=== PATIENT | male | born 1955 | race Caucasian/White ===

== ENCOUNTER 2016-08-16 16:28 | Inpatient (IN) ==
--- NOTE | 2016-08-16 16:58 | PROVIDER DOCUMENTATION ---
Addendum entered and electronically signed by Kulwinder Raines Scribe 08/17/16 11 :21: Physician Attestation - Physician Attestation I, the provider, attest to the following statement:: Abiel De Paz Physician documentation Attestation:: This documentation recorded by the scribe accurately reflects the service I personally performed and the decisions made by me. Addendum entered and electronically signed by Kulwinder Raines Scribe 08/17/16 11 :20: Attestation - Scribe Verification/Attestation Scribe:: Kulwinder Raines Acting as Scribe for:: Abiel De Paz Scribe documention review:: This chart was documented by a scribe and accurately reflects the service the provider performed and the decisions made by the provider. Addendum entered and electronically signed by Kulwinder Raines Scribe 08/17/16 11 :18: Departure - Departure Time of Disposition Order: 10:51 DIAGNOSIS: Abscess, Post op infection Disposition: [place] [id number] Certified Medical Emergency: Emergent Condition: Stable - Critical Care Note Total Time (mins): 45 Critical Care Statement: This patient required my direct personal management to treat or rule out processes, the absence of which, could potentiallly result in sudden, clinically significant life or limb threatening deterioration. Addendum entered and electronically signed by Kulwinder Raines Scribe 08/17/16 10 :53: Progress - CONSULTS/PCP/HOSPITALIST Notification #1 *Consult/PCP/Hospitalist*: ( ER physician at [place], [place]) Time Discussed: 10:51 Reason/Comments: accept patient , post op fem-pop infection Consult Disposition: other (Transfer To [facility] ER) Addendum entered and electronically signed by Kulwinder Raines Scribe 08/17/16 10 :46: Progress - PLAN OF CARE/RESULTS Progress/Plan/Lab Results: 1030- at bedside, consult on patient. Patient reported not wanting to go back to [facility]. reviewed CT scan of Abd/Pelv. patient has post op infection at [facility]. he had it performed at [facility]. recommended that patient return to surgeon that performed surgery due to being post-op. Patient updated on plan of care. patient initially wanted to stay here or go to [place]. spoke with patient in detail regarding issues with his post-infection. Patient is willing to be transferred to [facility]. [facility] will be contacted. Addendum entered and electronically signed by Leonora Schafer PA 08/16/16 22: 43: Additional Progress - ADDITIONAL REASSESSMENT Time Reassessed: 22:40 (Patient's BP dropped to 43/32 on the monitor. Upon reassessment, patient is sleeping but easily aroused from sleep. He is alert and only complains of left groin pain. He has a palpable radial pulse. Dr. Arita discussed with Dr. Sofia. Will start neosynephrine drip and upgrate to ICU admit.) Original Note: HPI-General Adult - General Stated Complaint: Post OP Complications Time Seen by Provider: 08/16/16 16:30 Source: patient Allergies/Adverse Reactions: Patient Allergies Allergy/AdvReac Type Severity Reaction Status Date / Time No Known Allergies Allergy Verified 12/04/15 22:02 Home Medications: Home Medication List Medication Instructions Recorded Confirmed Last Taken Type No Home Medications 08/16/16 08/16/16 Unknown History - History of Present Illness -Gen Adult Nature of Presenting Problems: 61 y/o M smoker with history of emphysema, alcohol abuse, MT x 2 (last MT 3 months ago), ?PVD (s/p left groin stent placement at [facility] in [place] 15 days ago) presents with complaint of worsening left groin pain and drainage (green) from surgical site x 2 weeks. He has no follow up scheduled with the [facility] or [facility] because he was not satisfied with his care. He does not have any plans for alternative follow up. He has no PCP. Denies any fever, N/V, dysuria, constipation, diarrhea. He curently lives at the [facility] in [place]. His transportation is walking. No contact with family. Location of Pain/Injury: reports: other (left groin) Pain Radiation: reports: other (generalized abdomen) Quality of Pain: reports: aching Severity: reports: severe Onset/Duration: reports: other (2 weeks ago) Timing: reports: still present Context/Activities at Onset: reports: other (recent surgery) Modifying Factors: improves with: nothing Associated Symptoms: denies: chest pain, constipation, cough, fever/chills, nausea, vomiting Review of Systems - Adult - REVIEW OF SYSTEMS - ADULT Constitutional: reports: no symptoms reported. denies: chills, fever Eyes: reports: no symptoms reported. denies: decreased vision, blurred vision Ears, Nose, Mouth & Throat: reports: no symptoms reported. denies: ear pain, hearing loss Cardiovascular: reports: no symptoms reported. denies: chest pain Respiratory: reports: no symptoms reported. denies: cough, shortness of breath , wheezing Gastrointestinal: reports: see HPI Genitourinary: reports: see HPI Musculoskeletal: reports: no symptoms reported. denies: muscle aches, muscle weakness Integumentary: reports: see HPI Neurological: reports: no symptoms reported. denies: numbness, paresthesia Psychiatric: reports: no symptoms reported Endocrine: reports: no symptoms reported Hematologic/Lymphatic: reports: no symptoms reported Allergic/Immunologic: reports: no symptoms reported All Other Systems: Reviewed and Negative Past History - Adult - PAST MEDICAL HISTORY-ADULT Review of Records: reports: Nursing Assessment Review, Medications Reviewed Major Childhood Illnesses: reports: denies history Cardiovascular: reports: CAD, HTN, hyperlipidemia, PVD (BLE stents) Respiratory: reports: asthma, COPD Gastrointestinal: reports: GERD Obstetrical/Gynecological: reports: denies history Genitourinary: reports: denies history Musculoskeletal: reports: denies history Neurological: reports: denies history Psychiatric: reports: depression Endocrine/Immune: reports: denies history Other Conditions: reports: denies history - PRIOR SURGERIES/PROCEDURES Surgical/Procedure History: reports: other (arterial stents in BLE) - IMMUNIZATION STATUS Childhood Immunizations: UTD Flu Vaccine: See Nurse Assessment - FAMILY HISTORY Family History: reviewed, not pertinent Physical Exam-General - PHYSICAL EXAM-ADULT Initial Vital Signs Reviewed: Yes - CONSTITUTIONAL General Appearance: alert, no apparent distress - EYES Eyes: PERRL/EOMI, pink conjunctivae - HEAD, EARS, NOSE, MOUTH & THROAT HENMT: normocephalic/atraumatic, moist mucous membranes - NECK Neck: non-tender, full range of motion, supple - RESPIRATORY Respiratory: chest non-tender, lungs clear, normal breath sounds, no pleuratic chest pain, no respiratory distress, no accessory muscle use - CARDIOVASCULAR Cardiovascular: regular rate, rhythm, no edema, other - GASTROINTESTINAL (ABDOMEN) Abdominal Exam: normal bowel sounds, guarding, tenderness (generalized) - GENITOURINARY Male Genitalia: other (bilateral groin incisions. left groin incision is tender , draining purulent material, and foul smelling.) - MUSCULOSKELETAL Back Exam: normal inspection, no CVA tenderness Extremity: tenderness, other (necrotic tissue at tips of toes). negative: erythema Peripheral Pulses: dorsalis-pedis (R): 2+, dorsalis-pedis (L): 1+ - SKIN Integumentary: normal color, normal turgor, warm/dry - NEUROLOGIC Neurologic: grossly normal, no motor/sensory deficits - PSYCHIATRIC Psych/Mental Status: normal mood/affect, normal thought content, normal thought process, oriented x 3 Progress - PLAN OF CARE/RESULTS Progress/Plan/Lab Results: Laboratory Tests 08/16/16 08/16/16 08/16/16 16:47 16:47 16:50 WBC 7.64 RBC 3.43 L Hgb 10.5 L Hct 32.0 L MCV 93.3 MCH 30.6 MCHC 32.8 L RDW Std Deviation 13.8 Plt Count 391 MPV 10.0 Immature Gran % (Auto) 0.0 Neut % (Auto) 72.4 Lymph % (Auto) 17.7 L [place] % (Auto) 7.1 Eos % (Auto) 2.5 Baso % (Auto) 0.3 Immature Gran # (Auto) 0.00 Neut # (Auto) 5.54 Lymph # (Auto) 1.35 [place] # (Auto) 0.54 Eos # (Auto) 0.19 Baso # (Auto) 0.02 Sodium 141 Potassium 3.6 Chloride 101 Carbon Dioxide 23 L Anion Gap 17 BUN 8 Creatinine 1.0 Estimated GFR/1.73 m2 > 60 BUN/Creatinine Ratio 8 Glucose 98 Calculated Osmolality 280 Calcium 8.5 L Total Bilirubin 0.16 L AST 16 ALT 21 Alkaline Phosphatase 99 Total Protein 7.0 Albumin 3.1 L Globulin 3.9 Albumin/Globulin Ratio 0.8 Lipase 19 Plasma Lactate 2.5 H Orders Category Date Time Status CHEST-2 VIEWS [RAD] Stat Exams 08/16/16 17:[address] ABD/PELVIS W/ IV CONT ONLY [CT] Stat Exams 08/16/16 17:22 Ordered BLOOD CULTURE [BLDCUL] Stat Lab 08/16/16 16:47 Results CBC WITH ELECTRONIC DIFF [HEME] Stat Lab 08/16/16 16:47 Completed COMPREHENSIVE METABOLIC PANEL [CHEM] Stat Lab 08/16/16 16:47 Completed LACTATE, PLASMA [CHEM] Stat Lab 08/16/16 16:50 Completed LIPASE [CHEM] Stat Lab 08/16/16 16:47 Completed URINALYSIS W/POSS RFLX CULT [URINALYSIS] Stat Lab 08/16/16 17:12 Uncollected 0.9% Sodium Chloride Inj [Ns] 1,000 ml Med 08/16/16 17:24 Discontinued IV 999 mls/hr Morphine Med 08/16/16 17:30 Discontinued 4 mg IV NOW ONE Ondansetron [Zofran] Med 08/16/16 17:30 Discontinued 4 mg IV NOW ONE Piperacil/Tazobact 3.375 gm/Ns [Zosyn 3.375 gm/Ns] 50 Med 08/16/16 17:27 Discontinued ml IV NOW Vancomycin 1 gm/Ns 250 ml Med 08/16/16 17:27 Discontinued IV NOW Arterial Bilateral Legs [CV] Stat Ther 08/16/16 17:27 Ordered Venous U/S Bilateral Legs [CV] Stat Ther 08/16/16 17:27 Ordered Vital Signs Temp Pulse Resp BP Pulse Ox 08/16/16 16:33 88 18 104/75 95 08/16/16 16:29 99.0 F 92 H 18 104/75 95 No Known Allergies Allergy (Verified 12/04/15 22:02) Ibuprofen [Motrin] 800 mg PO Q8H PRN PRN #20 tablet 12/04/15 Omeprazole [Prilosec] 20 mg PO DAILY@0700 #20 capsule 12/04/15 Laboratory 08/16/16 08/16/16 08/16/16 16:50 16:47 16:47 WBC 7.64 RBC 3.43 L Hgb 10.5 L Hct 32.0 L MCV 93.3 MCH 30.6 MCHC 32.8 L RDW Std Deviation 13.8 Plt Count 391 MPV 10.0 Immature Gran % (Auto) 0.0 Neut % (Auto) 72.4 Lymph % (Auto) 17.7 L [place] % (Auto) 7.1 Eos % (Auto) 2.5 Baso % (Auto) 0.3 Immature Gran # (Auto) 0.00 Neut # (Auto) 5.54 Lymph # (Auto) 1.35 [place] # (Auto) 0.54 Eos # (Auto) 0.19 Baso # (Auto) 0.02 Sodium 141 Potassium 3.6 Chloride 101 Carbon Dioxide 23 L Anion Gap 17 BUN 8 Creatinine 1.0 Estimated GFR/1.73 m2 > 60 BUN/Creatinine Ratio 8 Glucose 98 Calculated Osmolality 280 Calcium 8.5 L Total Bilirubin 0.16 L AST 16 ALT 21 Alkaline Phosphatase 99 Total Protein 7.0 Albumin 3.1 L Globulin 3.9 Albumin/Globulin Ratio 0.8 Lipase 19 Plasma Lactate 2.5 H - REASSESSMENT Reassessment #1 Time Reassessed: 20:00 (Discussed with patient that he has a post-op infection. I strongly recommended we consult [facility] for transfer because it is best that the original surgeon care for the infection, however patient refuses transport to [facility] and wants to be cared for here. Dr. Arita also discussed this with patient a second time and patient still refuses. Will admit to hospitalist with surgery to consult.) Status: unchanged - CT/MRI 1 CT Study: Abdomen, Pelvis CT Results: 2.5cm x 1.5cm fluid collection c/w abscess at incision site - ULTRASOUND (By Radiology) 1 US Study: Lower Ext US Results: illiac stents patent. no DVT - CONSULTS/PCP/HOSPITALIST Notification #1 *Consult/PCP/Hospitalist*: Dr. Quispe Consult Disposition: other (will consult inpatient) #2 Consult: Dr. Sandhu Consult Disposition: Admit Departure - Departure Time of Disposition Order: 21:05 DIAGNOSIS: Abscess, Post op infection Disposition: ADMITTED INPATIENT 09 Certified Medical Emergency: Emergent Condition: Stable Referrals: None,PCP [Primary Care Provider] - Attestation - Physician/ AYAAN Attestation Patient care was provided by Advanced Practice Provider:: Yes Advanced Practice Provider:: Leonora Schafer Advanced Practice Provider documentation review:: The Mid-level provider documentation, treatment plan and medical decision making was reviewed by the physician who agrees with all treatment and medical decision making by the [facility].
[2016-08-16] MEDS ORDERED: NS 1,000 ML IV ONE ×2 (17:24→20:07)
[2016-08-16] MEDS ORDERED: VANCOMYCIN 1 GM/NS 250 ML IV ONE (17:27)
[2016-08-16] MEDS ORDERED: ZOSYN 3.375 GM/NS 50 ML IV ONE (17:27)
[2016-08-16] MEDS ORDERED: ZOFRAN IV ONE (17:30)
[2016-08-16] MEDS ORDERED: MORPHINE IV ONE (17:30)
[2016-08-16 17:42] LABS: MANUAL DIFF NEEDED? NO
[2016-08-16 17:46] LABS: BASO% 0.3 % (0.0-0.8); EOS# 0.19 X1000 (0.0-0.7); EOS% 2.5 % (0.0-10.0); HEMOGLOBIN 10.5 g/dL (14.0-18.0); LYMPH# 1.35 X1000 (1.2-3.4); LYMPH% 17.7 % (20.5-51.1); MCH 30.6 PG (27-31); MCHC 32.8 g/dL (33-37); MCV 93.3 FL (81-99); MONO# 0.54 X1000 (0.11-0.59); MONO% 7.1 % (1.7-9.3); NEUT% 72.4 % (42.2-75.2); PLT 391 X1000 (130-400); RBC 3.43 XMIL (4.7-6.1)
[2016-08-16 18:25] LABS: AGAP 17; ALBUMIN 3.1 g/dL (3.5-5.0); ALKALINE PHOSPHATASE 99 U/L (32-122); BUN 8 mg/dL (8-22); CALCIUM 8.5 mg/dL (8.8-10.2); CHLORIDE 101 mmol/L (98-107); COSMO 280; GOT 16 U/L (10-34); GPT 21 U/L (10-44); LIPASE 19 U/L (13-60); POTASSIUM 3.6 mmol/L (3.5-5.1); SODIUM 141 mmol/L (136-145); TCO2 23 mmol/L (25-35); TOTAL BILIRUBIN 0.16 mg/dL (0.20-1.00)
[2016-08-16] MEDS ORDERED: NS 500 ML IV ONE (20:43)
[2016-08-16] MEDS ORDERED: NEO-SYNEPHRINE 50 MG in NS 250 ML IV SCH (22:45)
[2016-08-16] MEDS ORDERED: VANCOMYCIN IV PER PHARMACY MISC SCH (23:30)
[2016-08-17] MEDS ORDERED: ZOFRAN IV PRN (01:10)
[2016-08-17] MEDS ORDERED: MORPHINE IV PRN (01:10)
--- NOTE | 2016-08-17 01:25 | HISTORY AND PHYSICAL ---
CHIEF COMPLAINT: Drainage and pain on left wound. HISTORY OF PRESENT ILLNESS: This is a 61-year-old male with history of significant PVD, COPD, dyslipidemia, who came in from home with a several day history of irritation in his left groin associated with drainage from an incision he has associated with I believe stent placement to his iliac arteries. The patient has had issues with this off and on for several days. He had recent stent placement or angioplasty about 2 weeks ago at the [facility] in [place]. He claims [facility]. He has not followed up with them and he is very upset about trying to follow up with them. He would not even sign a release to get records and refused to go back to the [facility] where he had once came. The patient is agreeable to be admitted here for IV antibiotics and at least a surgical evaluation although he may not need any further treatment at this point. Apparently, he has social history of homelessness and poor social resources. Patient admitted for infected incision above a vascular stent. PAST MEDICAL HISTORY: 1. CAD. 2. Hypertension. 3. Dyslipidemia. 4. Peripheral vascular disease. 5. COPD. PAST SURGICAL HISTORY: He has had arterial for PVD. SOCIAL HISTORY: He smokes up to 2 packs a day. He has done that for over 20 years. Occasional alcohol use. MEDICATIONS: Denies. REVIEW OF SYSTEMS: Negative. ALLERGIES: No known drug allergies. PHYSICAL EXAMINATION: VITAL SIGNS: Blood pressure was 126/65, heart rate of 86, respiratory rate of 18, temperature 98.9 degrees, 98% on room air. GENERAL: A well-developed male in no acute distress. HEAD: Normocephalic, atraumatic. EYES: Pupils equal, round, reactive to light. Extraocular movements were intact. EAR/NOSE/THROAT: He had moist mucous membranes. NECK: Supple. CARDIOVASCULAR: Regular rate and rhythm. No murmurs, gallops, or rubs. PULMONARY: Bilateral breath sounds. Clear to auscultation. GASTROINTESTINAL: Soft, nontender, nondistended. Bowel sounds are positive. EXTREMITIES: No clubbing or cyanosis. 2+ dorsalis pedal pulses, very potent even though his legs are cool. Over his left groin area kind of in between in the left lower quadrant, he has an incision which is pink and has good granulation tissue but is weeping some purulent white material especially at the base. Has dehisced a little bit at the base but other than that no vita severe cellulitis. LYMPHATICS: No peripheral edema. NEUROLOGICAL: Exam was nonfocal. LABORATORY DATA: No white count. Rest of his workup was negative. ASSESSMENT: Basically, this is a 61-year-old male with history of a recent stent replacement sounds like coming in for cellulitis and infected incision. 1. Incision wound infection possibly associated with abscess. CT scan does show a small abscess at the left side of the femoral-femoral bypass but the bypass is patent. I did not appreciate a bruit so we will continue empiric antibiotics. He is on vancomycin and Zosyn. We will consult Surgery for further evaluation and monitor closely. 2. Coronary artery disease, peripheral vascular disease. We will continue to monitor very closely. 3. Hypertension, appears to be stable. 4. Tobacco abuse. 5. Chronic obstructive pulmonary disease. We will continue to monitor. DISPOSITION: Pending resolution of his other issues.
[2016-08-17] MEDS: NS 1,000 ML IV SCH ×2 (02:39→08:41)
[2016-08-17] MEDS: ZOSYN 3.375 GM/NS 50 ML IV SCH ×2 (02:40→08:41)
[2016-08-17] MEDS ORDERED: VANCOMYCIN 650 MG in NS 150 ML IV ONE (03:00)
[2016-08-17 04:34] LABS: URINE CULTURE NEEDED? NO; URINE MICRO REVIEW NEEDED? NO; URINE SOURCE CLEAN CATCH
[2016-08-17 04:38] LABS: BILIRUBIN URINE NEGATIVE (NEGATIVE); BLOOD URINE NEGATIVE (NEGATIVE); COLOR YELLOW; GLUCOSE URINE NEGATIVE (NEGATIVE); LEUKOCYTES URINE NEGATIVE (NEGATIVE); NITRITE URINE NEGATIVE (NEGATIVE); PH URINE 5.5; PROTEIN URINE NEGATIVE (NEGATIVE); TURBIDITY URINE CLEAR (CLEAR); UROBILINOGEN URINE NORMAL (NORMAL)
[2016-08-17 04:39] LABS: UR EPITHELIAL CELLS <10 /HPF (<10); URINE BACTERIA NEGATIVE /HPF; URINE RBC <10 /HPF (<10); URINE WBC <10 /HPF (<10)
[2016-08-17 06:41] LABS: HEMATOCRIT 28.1 % (42.0-52.0); HEMOGLOBIN 8.8 g/dL (14.0-18.0); MCH 30.4 PG (27-31); MCHC 31.3 g/dL (33-37); MCV 97.2 FL (81-99); MPV 9.9 FL (7.4-10.4); RBC 2.89 XMIL (4.7-6.1)
[2016-08-17 07:23] LABS: AGAP 10; BUN 9 mg/dL (8-22); CALCIUM 7.8 mg/dL (8.8-10.2); CHLORIDE 107 mmol/L (98-107); COSMO 276; POTASSIUM 4.3 mmol/L (3.5-5.1); SODIUM 139 mmol/L (136-145); TCO2 22 mmol/L (25-35)
--- NOTE | 2016-08-17 07:42 | Diag Imaging Result Document ---
PROCEDURE NAME: CHEST-2 VIEWS - 08/16/2016 CHEST X-RAY, 2 VIEWS: COMPARISON: 06/05/2015. FINDINGS: The lungs are normally expanded and clear. Heart size and mediastinal contours are normal. No pneumothorax or pleural effusion. IMPRESSION: Negative exam.
--- NOTE | 2016-08-17 08:04 | Diag Imaging Result Document ---
PROCEDURE NAME: CT ABD/PELVIS W/ IV CONT ONLY - 08/16/2016 CT OF THE ABDOMEN WITH INTRAVENOUS CONTRAST: FINDINGS: There are atherosclerotic calcifications in the aorta and its branches including the renal, particularly the proximal right renal artery. The celiac artery and the proximal superior mesenteric as well as some calcifications more distally in the superior mesenteric artery. There is patency of the inferior mesenteric artery. The right common iliac artery is occluded. There is no evidence of abdominal aortic aneurysm. There are granulomata in the spleen. The liver is unremarkable. The gallbladder is contracted. The adrenal glands are within normal limits. The pancreas is within normal limits. There is some cortical scarring in the mid portion of the right kidney. There is a cyst in the inferior pole of the left kidney. No significant adenopathy is present. There is no evidence of bowel obstruction. CT OF THE PELVIS WITH INTRAVENOUS CONTRAST: FINDINGS: There is no evidence of appendicitis. The urinary bladder is slightly distended. There is no evidence of free fluid. There is a femoral-femoral graft. There is a fluid collection subadjacent to the left side of the graft which presumably is the source of the purulent drainage which is described in the history. There is some enhancement in the periphery of this collection. It extends from the graft to the skin and measures approximately 3.1 x 1.2 cm in axial dimension. There are nonspecific-appearing inguinal nodes bilaterally. There is severe degenerative disk disease at the L5-S1 level. There is a healing rib fracture in the posterior right 11th rib. IMPRESSION: Extensive vascular calcification and atherosclerotic disease with occlusion of the right common iliac artery. Recent femoral-femoral graft the left side which appears to be associated with a fluid collection possibly representing an abscess. There is patency of the graft a nonetheless. No other acute abnormalities are demonstrated in the abdomen and pelvis.
--- NOTE | 2016-08-17 11:10 | PROGRESS NOTE ---
DATE: 08/17/2016 INDICATION FOR EVALUATION: The patient presented to the emergency room last night with a 7-day history of foul drainage from his left groin. He is 2 weeks status post vascular surgery in [place] at [facility]. The patient is not exactly sure what he had done. He said he was told he had no blood flow to his left leg, and they performed an operation to restore blood flow to his left leg. He complains of some left lower abdominal pain. He denies fever. PAST MEDICAL AND SURGICAL HISTORY: Noted for peripheral vascular disease, COPD, coronary artery disease, hypertension, and no prior surgeries to his lower extremity, except for the 1 mentioned above. HABITS: He smokes 2 packs a day for many years. SUBJECTIVE: Last night my partner, Dr. Quispe, was apparently called and discussed the case with the ER physician. He then subsequently was admitted to the hospitalist, and I was called today for surgical consultation. OBJECTIVE: General: On exam, the patient is hemodynamically stable. He is alert and oriented x4. He is in no acute distress. He is nontoxic appearing. Groins: However, in his left groin there is a small open wound through the incision with purulent drainage noted. He is fairly tender in this area. There is some induration around it. He also has a matching groin incision on the right side, but no obvious infection over there. His feet are warm. He appears to have good perfusion or adequate perfusion to his feet. LABS AND X-RAYS: His white blood cell count was normal. He had a CT scan of his abdomen and pelvis, which shows a femoral-femoral bypass graft with a fluid collection adjacent to the graft and extending up to the skin with surrounding inflammatory changes. ASSESSMENT AND PLAN: So, in summary, this patient has had what looks to be a femoral-femoral bypass graft 2 weeks ago at [facility] and now has an infection of the skin and soft tissue and perhaps the graft, as the fluid collection goes all the way down to the graft. After discussing with the patient the serious nature of this, he is in agreement to be transferred back to his vascular surgeon in [place] for further care of this problem. I have discussed this with the ER physician and awaiting a call back from the hospitalist, who has him on his service.
--- NOTE | 2016-08-17 11:52 | DISCHARGE SUMMARY ---
ADMISSION DATE: 08/16/2016 DISCHARGE DATE: 08/17/2016 PLAN: Transfer to [facility] in [place]. ACCEPTING PHYSICIAN: Dr. Arteaag. ADMISSION DIAGNOSES: 1. Left groin small abscess at the left side of the femoral-femoral bypass with wound infection. 2. Coronary artery disease. 3. Peripheral vascular disease. 4. Hypertension. 5. Tobacco abuse. 6. Chronic obstructive pulmonary disease with no exacerbation. DISCHARGE DIAGNOSES: 1. Left groin abscess with infection status post femoral-femoral bypass with up patent bypass, who was on empiric antibiotics, vancomycin and Zosyn. Will be transferred to Dr. Arteaga at [facility] in [place] for further treatment. 2. Coronary artery disease, stable. 3. Peripheral vascular disease, stable. 4. Hypertension, stable. 5. Tobacco abuse cessation discussed. 6. Chronic obstructive pulmonary disease, stable. 7. Anemia with normal mean corpuscular volume. 8. Gram-positive cocci bacteremia. Full report pending. This is being covered by vancomycin. PROCEDURES AND FINDINGS: None. CONSULTATIONS: Dr. Lyons to evaluate left femoral bypass area. HOSPITAL COURSE: Mr. Sushil Brewer is a 61-year-old male with a history of significant peripheral vascular disease, COPD, dyslipidemia, who came from home with a several-day history of irritation of the left groin associated with drainage from an incision where he has had a femoral-femoral bypass recently. Apparently he has been having this issue on and off for the last several days. He recently had a coronary artery stent placed about 2 weeks ago at the [facility] in [facility]. He apparently has not followed up with them and has been upset about trying to follow up with them. Apparently according to the admission H and P, he would not sign a release to get records and refused to go back to the [facility] where he had come from. He was agreeable to be admitted here for IV antibiotics and surgical evaluation. He apparently has a social history of homelessness with poor social resources. He was evaluated by Dr. Lyons this morning, and will now be sent to [facility] in [place] with the accepting physician as Dr. Arteaga for further evaluation of the fem-fem bypass incisional site abscess. No significant complications. He has had a wound culture of the left groin that was obtained less than 24 hours ago that currently says no growth. Blood cultures were obtained where apparently 2 sets of blood culture show gram-positive cocci. DISCHARGE LAB DATA: White blood cells 7000, hemoglobin 8.8, hematocrit 28.1, platelet count 311. Sodium 139, potassium 4.3, BUN 9, creatinine is 1.0, calcium 7.8. Urinalysis negative. DISCHARGE IMAGING: Abdominal/pelvic CT impression: Extensive vascular calcification and atherosclerotic disease with occlusion of the right common iliac artery. Recent femoral-femoral graft of the left side, which appears to be associated with a fluid collection possibly representing an abscess. There is patency of the graft nonetheless. No other acute abnormalities are demonstrated in the abdomen and pelvis. Chest x-ray was a negative exam. DISCHARGE PHYSICAL EXAMINATION: Vital Signs: Temperature 98.6 degrees, heart rate 65, respiratory rate 20, blood pressure 120/78, O2 saturation 100% on 2 L nasal cannula. DISCHARGE MEDICATIONS: No home medications. He will need to continue on broad- spectrum antibiotics, specifically gram-positive coverage with vancomycin and then gram- negative coverage with Zosyn. He needs gram-positive coverage for the gram-positive cocci that is found in both sets of blood cultures. DISCHARGE TIME: 35 minutes. DISCHARGE ACTIVITY: Activity as tolerated. DISPOSITION: [facility] in [place] with Dr. Arteaga. DISCHARGE INSTRUCTIONS: Continue broad spectrum IV antibiotics for bacteremia and left femoral abscess near the fem-fem bypass site. Also, cessation of tobacco abuse ( cessation of cigarettes). Dictated by YAIMA Fernández for Sukhdeep Dorado MD MTDD
[2016-08-17 13:48] VITALS: BP 133/77
[2016-08-18] MEDS ORDERED: VANCOMYCIN 1,350 MG in NS 250 ML IV SCH (03:00)
== END 2016-08-17 14:04 | disposition home or self-care (01) | DRG 863 ==
LOC: EDBD → ED 16:28 → EDIPHOLD 23:57
PROVIDERS: ATTEND Internal Medicine
DX: T81.4XXA Infection following a procedure, initial encounter (principal); R78.81 Bacteremia; I10 Essential (primary) hypertension; L02.214 Cutaneous abscess of groin; I70.203 Unspecified atherosclerosis of native arteries of extremities, bilateral legs; J44.9 Chronic obstructive pulmonary disease, unspecified; E78.5 Hyperlipidemia, unspecified; Z95.820 Peripheral vascular angioplasty status with implants and grafts; Z59.0 Homelessness; I25.10 Atherosclerotic heart disease of native coronary artery without angina pectoris; F17.210 Nicotine dependence, cigarettes, uncomplicated; D64.9 Anemia, unspecified
CPT/HCPCS: 36415; 71020; 74177; 80048; 80053; 81001; 82948; 83605; 83690; 85025; 85027; 87040; 87070; 87077; 87186; 93005; 93923; 93970; 96361; 96365; 96366; 96367; 96368; 96375; 96376; J2270; J2370; J2405; J2543; J3370; J7030; J7040; J7050; Q9967

== ENCOUNTER 2019-09-23 12:37 | Observation (INO) ==
[2019-09-23] MEDS ORDERED: DILAUDID IV ONE (13:10)
[2019-09-23] MEDS ORDERED: ZOFRAN IV ONE (13:10)
[2019-09-23 13:22] LABS: URINE SOURCE CLEAN CATCH
[2019-09-23 13:26] LABS: BILIRUBIN URINE NEGATIVE (NEGATIVE); BLOOD URINE NEGATIVE (NEGATIVE); COLOR STRAW; GLUCOSE URINE NEGATIVE (NEGATIVE); KETONE URINE NEGATIVE (NEGATIVE); LEUKOCYTES URINE NEGATIVE (NEGATIVE); NITRITE URINE NEGATIVE (NEGATIVE); PROTEIN URINE NEGATIVE (NEGATIVE); SP GRAVITY URINE 1.004; TURBIDITY URINE CLEAR (CLEAR); UROBILINOGEN URINE NORMAL (NORMAL)
[2019-09-23 13:27] LABS: UR EPITHELIAL CELLS <10 /HPF (<10); URINE BACTERIA NEGATIVE /HPF; URINE RBC <10 /HPF (<10); URINE WBC <10 /HPF (<10)
[2019-09-23 13:52] LABS: BASO# 0.09 X1000 (0.0-0.2); BASO% 1.1 % (0.0-0.8); EOS# 0.08 X1000 (0.0-0.7); HEMATOCRIT 43.1 % (42.0-52.0); HEMOGLOBIN 14.4 g/dL (14.0-18.0); IMM GRAN# 0.02 X1000 (0.0-0.04); IMM GRAN% 0.3 % (0.0-0.5); LYMPH# 1.95 X1000 (1.2-3.4); LYMPH% 24.5 % (20.5-51.1); MCH 31.2 PG (27-31); MCHC 33.4 g/dL (33-37); MCV 93.5 FL (81-99); MONO# 0.67 X1000 (0.11-0.59); MONO% 8.4 % (1.7-9.3); MPV 10.9 FL (7.4-10.4); NEUT# 5.14 X1000 (1.4-6.5); NEUT% 64.7 % (42.2-75.2); PLT 189 X1000 (130-400); RBC 4.61 XMIL (4.7-6.1); RDW 13.2 % (11.5-14.5); WBC 7.95 X1000 (4.8-10.8)
[2019-09-23 14:02] LABS: AGAP 16; ALB/GLOB RATIO 1.8; ALBUMIN 4.6 g/dL (3.5-5.0); ALKALINE PHOSPHATASE 105 U/L (32-122); AMYLASE 77 U/L (20-200); BUN 9 mg/dL (8-22); CHLORIDE 99 mmol/L (98-107); COSMO 275; ESTIMATED GFR > 60; GLUCOSE 78 mg/dL (70-104); GOT 28 U/L (10-34); GPT 31 U/L (10-44); LIPASE 18 U/L (13-60); POTASSIUM 4.2 mmol/L (3.5-5.1); SODIUM 139 mmol/L (136-145); TCO2 24 mmol/L (25-35); TOTAL BILIRUBIN 0.54 mg/dL (0.20-1.00); TOTAL PROTEIN 7.1 g/dL (6.3-8.3)
[2019-09-23] MEDS ORDERED: NS 1,000 ML IV ONE ×2 (14:06→17:14)
[2019-09-23 14:29] LABS: INR 0.91; PROTIME 12.3 Seconds (11.0-16.0)
--- NOTE | 2019-09-23 14:29 | Diag Imaging Result Doc PS360 ---
EXAM: CHEST-1 VIEW HISTORY: Sepsis Protocol TECHNIQUE: Chest single view COMPARISON: 08/16/2016 FINDINGS: The lungs are well expanded. The heart is not enlarged. The vessels are not distended. There are no infiltrates. No effusion identified. IMPRESSION: No pneumonia Electronically signed by Jonah Rivera 09/23/2019 2:26 PM
[2019-09-23 14:30] LABS: PTT 29.6 Seconds (22.3-41.8)
--- NOTE | 2019-09-23 14:30 | EKG Report ---
Test Performed on : 09/23/2019 1:00:45 PM Test Reason : ABD PAIN Blood Pressure : / mmHG Vent. Rate : 090 BPM Atrial Rate : 090 BPM P-R Int : 128 ms QRS Dur : 090 ms QT Int : 386 ms P-R-T Axes : 052 002 -06 degrees QTc Int : 472 ms Normal sinus rhythm. Inferior infarct (cited on or before 28-AUG-2017) Abnormal ECG When compared with ECG of 28-AUG-2017 09:53, No significant change was found Unconfirmed Result
--- NOTE | 2019-09-23 15:22 | Diag Imaging Result Doc PS360 ---
EXAM: CT ABD/PELVIS W/PO AND IV CON 09/23/2019 HISTORY: epigastric abdo pain TECHNIQUE: This exam was performed using automated exposure control, adjustment of mA or kV according to patient size, and/or use of iterative reconstruction technique. COMMENT: There is no evidence of acute disease in the visualized portion of the chest. There are atherosclerotic changes in the aorta and its branches without evidence of aneurysm. There is apparent occlusion or near occlusion of the origin of the right common iliac artery which was also the case on 08/16/2016. The mesenteric and renal arteries are patent. The liver, adrenal glands, and pancreas are stable in appearance. There are multiple granulomata as well as lucent lesions within the spleen the latter were not present at the time the previous study. The spleen is not enlarged. The small bowel is not distended. There is some gas and fluid in the colon without evidence of dilatation. There are no apparent gallstones. The kidneys are without evidence of hydronephrosis or mass. There is a cyst in the lower pole of the left kidney which was present previously and there is cortical scarring present in the mid posterior lateral right kidney which has not changed. Pelvis: The appendix is normal in appearance. There are no abnormal fluid collections. There are no masses. There is some deformity of the right inferior pubic ramus consistent with previous fracture. There are degenerative disc changes particularly at the L3-4 L4-5 and L5-S1 levels. No acute bony abnormality is present. IMPRESSION: Multiple new small lucent lesions within the spleen. The possibility of multiple small splenic abscesses cannot be excluded. Electronically signed by Jose Miguel Lima 09/23/2019 3:19 PM
[2019-09-23] MEDS ORDERED: ZOSYN 3.375 GM in NS 50 ML IV ONE (15:52)
--- NOTE | 2019-09-23 15:52 | PROVIDER DOCUMENTATION ---
This chart was entered by Deanen Quispe Scribe, acting as scribe for Tomas Bryant MD. HPI-Abdominal Pain/GI Problem - General Chief Complaint: Abdominal Pain Stated Complaint: ABD PAIN Time Seen by Provider: 09/23/19 12:45 Source: patient Allergies/Adverse Reactions: Patient Allergies Allergy/AdvReac Type Severity Reaction Status Date / Time No Known Allergies Allergy Verified 10/01/17 17:58 Home Medications: Home Medication List Medication Instructions Recorded Confirmed Last Taken Type Acetaminophen with Codeine 1 ea PO Q6-8H PRN PRN #30 tab 09/03/17 09/05/17 09/05/17 04:30 Rx [Tylenol with Codeine #3] Acetaminophen with Codeine 1 each PO Q12H PRN PRN 2 Days #4 10/01/17 Unknown Rx [Tylenol with Codeine #3] tablet - History of Present Illness-ABD Nature of Presenting Problems: 67 yowm presents to the ed with c/o abdominal pain that has been intermittent for 2 years, he reports "I get golf ball hail in my stomach" pt is poor historian and dramatic in movements when "this is the ball in my stomach" pain occurs. pt has epigastric and suprapubic pain and is guarding his abdomen. pt is homeless and sts "i cant leave this town because the police and combat rifle crewmember wont let me" pt wants to go back to [place] where he had vascular shunts placed Abdominal Pain Onset Location: reports: epigastric, suprapubic Pain Radiation: reports: RUQ, chest, back Quality of Pain: reports: sharp, stabbing Severity in ED: reports: severe Onset/Duration: reports: other (2 years) Timing: reports: intermittent Activities at Onset: reports: light activity Exposure to sick contacts?: No Modifying Factors: worse with: movement, palpation Associated Symptoms: reports: denies symptoms Last BM: last night Dark Stools Present?: reports: none noticed Rectal Bleeding: reports: none # of Diarrhea Episodes: 0 Rectal Pain: reports: none # of Vomiting Episodes: 0 Emesis Description: reports: none Bruising or Bleeding Gums?: No Similar Symptoms Previously?: Yes Recently seen or treated by another doctor?: No Review of Systems - Adult - REVIEW OF SYSTEMS - ADULT Constitutional: denies: chills, fever Eyes: reports: no symptoms reported Ears, Nose, Mouth & Throat: reports: no symptoms reported Cardiovascular: reports: see HPI, chest pain. denies: palpitations Respiratory: denies: cough, shortness of breath, wheezing Gastrointestinal: reports: see HPI, abdominal pain. denies: diarrhea, nausea, vomiting Genitourinary: reports: no symptoms reported Musculoskeletal: reports: see HPI, other (RUE). denies: back pain, neck pain Integumentary: reports: no symptoms reported Neurological: denies: dizziness/vertigo, headache/migraines Psychiatric: reports: no symptoms reported Endocrine: reports: no symptoms reported Hematologic/Lymphatic: reports: no symptoms reported Allergic/Immunologic: reports: no symptoms reported All Other Systems: Reviewed and Negative Past History - Adult - PAST MEDICAL HISTORY-ADULT Review of Records: reports: Old Records Reviewed, Nursing Assessment Review, Medications Reviewed, Social history reviewed & non-contributory. Major Childhood Illnesses: reports: denies history Cardiovascular: reports: CAD, HTN, hyperlipidemia, PVD (BLE stents) Respiratory: reports: asthma, COPD Gastrointestinal: reports: GERD Genitourinary: reports: denies history Musculoskeletal: reports: chronic pain Neurological: reports: denies history Psychiatric: reports: anxiety, depression, psychiatric problems, ptsd Endocrine/Immune: reports: denies history Other Conditions: reports: denies history - PRIOR SURGERIES/PROCEDURES Surgical/Procedure History: reports: reviewed, not pertinent, hernia repair, other - IMMUNIZATION STATUS Childhood Immunizations: UTD, See Nurse Assessment Flu Vaccine: See Nurse Assessment - FAMILY HISTORY Family History: reviewed, not pertinent - SOCIAL HISTORY Smoking: cigarettes, greater than 1 pack/day Provider spent 3-5 mins advising pt. on dangers of tobacco.: Discussed manners to quit use, and f/u contacts for add'l counseling. Substance Use: alcohol, marijuana Alcohol Use Frequency: every day Living Situation: homeless Physical Exam-General - PHYSICAL EXAM-ADULT Initial Vital Signs Reviewed: Yes - CONSTITUTIONAL General Appearance: appears well, alert, mild distress - EYES Eyes: PERRL/EOMI, pink conjunctivae - HEAD, EARS, NOSE, MOUTH & THROAT HENMT: moist mucous membranes - NECK Neck: non-tender, full range of motion, supple, normal inspection - RESPIRATORY Respiratory: chest non-tender, lungs clear, normal breath sounds - CARDIOVASCULAR Cardiovascular: normal peripheral pulses, regular rate, rhythm - CHEST (BREASTS) Chest/Breast: deferred - GASTROINTESTINAL (ABDOMEN) Abdominal Exam: soft, guarding, tenderness (epigastric and suprapubic), other (old scars from bilateral hernoa repair). negative: rigid, rebound - GENITOURINARY Male Genitalia: deferred Rectal Exam: deferred Hemoccult Exam: deferred - LYMPHATIC Lymphatic: no adenopathy - MUSCULOSKELETAL Back Exam: no CVA tenderness, no vertebral tenderness Extremity: normal range of motion, non-tender, normal gait, normal inspection, normal capillary refill, pelvis stable - SKIN Integumentary: normal color, normal turgor, warm/dry - NEUROLOGIC Neurologic: grossly normal - PSYCHIATRIC Psych/Mental Status: normal mood/affect, normal thought content, normal thought process, oriented x 3 Progress - PLAN OF CARE/RESULTS Progress/Plan/Lab Results: Vital Signs - 8 hr 09/23/19 12:44 Temperature 97.9 F Pulse Rate 86 Respiratory Rate 19 Blood Pressure 83/63 O2 Sat by Pulse Oximetry 96 Orders Category Date Time Status NEWS Score 2-4:Order NEWS Lactate Series NOW Care 09/23/19 12:50 Active AMYLASE [CHEM] Stat Lab 09/23/19 12:50 Uncollected CBC WITH ELECTRONIC DIFF [HEME] Stat Lab 09/23/19 12:50 Uncollected COMPREHENSIVE METABOLIC PANEL [CHEM] Stat Lab 09/23/19 12:50 Uncollected LACTATE, PLASMA [CHEM] Lab 09/23/19 13:00 Uncollected LACTATE, PLASMA [CHEM] Lab 09/23/19 16:00 Uncollected LACTATE, PLASMA [CHEM] Lab 09/23/19 19:00 Uncollected LIPASE [CHEM] Stat Lab 09/23/19 12:50 Uncollected URINALYSIS W/POSS RFLX CULT [URINALYSIS] Stat Lab 09/23/19 12:50 Uncollected Result Diagrams: 09/23/19 13:25 09/23/19 13:25 - REASSESSMENT Reassessment #1 Time Reassessed: 15:21 (pt is sleeping in bed in no distress) Status: improving - EKG 1 Time of EKG reading by physician:: 13:00 EKG Read and Signed by:: Tomas Bryant EKG Interpretation (*Must complete 3 of following elements*): Abnormal Rate: 90 Rhythm: nsr Wendell: normal QRS: normal NC Interval: normal ST Wave: normal Comments: inferior infarct, age undetermined - XRAY 1 XRAY: Bilateral XRAY Study: Chest Impression: See EMR Report (COMPARISON: 08/16/2016 FINDINGS: The lungs are well expanded. The heart is not enlarged. The vessels are not distended. There are no infiltrates. No effusion identified. IMPRESSION: No pneumonia Electronically signed by Jonah Rivera 09/23/2019 2:26 PM) - CT/MRI 1 CT Study: Abdomen, Pelvis Impression: See EMR Report (COMMENT: There is no evidence of acute disease in the visualized portion of the chest. There are atherosclerotic changes in the aorta and its branches without evidence of aneurysm. There is apparent occlusion or near occlusion of the origin of the right common iliac artery which was also the case on 08/16/2016. The mesenteric and renal arteries are patent. The liver, adrenal glands, and pancreas are stable in appearance. There are multiple granulomata as well as lucent lesions within the spleen the latter were not present at the time the previous study. The spleen is not enlarged. The small bowel is not distended. There is some gas and fluid in the colon without evidence of dilatation. There are no apparent gallstones. The kidneys are without evidence of hydronephrosis or mass. There is a cyst in the lower pole of the left kidney which was present previously and there is cortical scarring present in the mid posterior lateral right kidney which has not changed. Pelvis: The appendix is normal in appearance. There are no abnormal fluid collections. There are no masses. There is some deformity of the right inferior pubic ramus consistent with previous fracture. There are degenerative disc changes particularly at the L3-4 L4-5 and L5-S1 levels. No acute bony abnormality is present. IMPRESSION: Multiple new small lucent lesions within the spleen. The possibility of multiple small splenic abscesses cannot be excluded. Electronically signed by Jose Miguel Lima 09/23/2019 3:19 PM) - CONSULTS/PCP/HOSPITALIST Notification #1 *Consult/PCP/Hospitalist*: dr topete Time Discussed: 15:27 Reason/Comments: phone consult #2 Consult: Munira Dumont SHADING PAINTER for Hospitalist Time Discussed: 15:51 Consult Disposition: Will see in ED, Admit Departure - Departure Date of Disposition Decision: 09/23/19 Time of Disposition Decision: 15:51 DIAGNOSIS: Abdominal pain of unknown etiology, Spleen anomaly Disposition: ADMITTED INPATIENT 09 Certified Medical Emergency: Emergent Condition: Fair Referrals and Follow-Ups: None,PCP [Primary Care Provider] - - Critical Care Note This patient required my direct & personal management of CC.: No Attestation - Physician/ AYAAN Attestation Patient care was provided by Advanced Practice Provider:: No The physician spent face to face time with patient:: Yes Advanced Practice Provider documentation review:: Supervising physician onsite and consulted in the evaluation and care of this patient. The physician did have a face to face encounter with the patient. This chart was documented by the indicated scribe, (Deanne Quispe Scribe) and accurately reflects the services I performed and decisions made by me, Tomas Bryant MD, as attested by the provider's signature.
[2019-09-23] MEDS ORDERED: ZOFRAN IV PRN (17:14)
[2019-09-23] MEDS ORDERED: TYLENOL PO PRN (17:14)
[2019-09-23 17:42] LABS: UR AMPHETAMINES QUAL NONE DETECTED (NONE DETECT); UR BARBITUATES QUAL NONE DETECTED (NONE DETECT); UR BENZODIAZEPIN QUAL NONE DETECTED (NONE DETECT); UR CANNABINOIDS QUAL NONE DETECTED (NONE DETECT); UR COCAINE QUAL NONE DETECTED (NONE DETECT); UR METHADONE QUAL NONE DETECTED (NONE DETECT); UR OPIATES QUAL NONE DETECTED (NONE DETECT); UR OXYCODONE QUAL NONE DETECTED (NONE DETECT); UR PCP QUAL NONE DETECTED (NONE DETECT)
[2019-09-23] MEDS ORDERED: ATIVAN IV PRN (17:54)
[2019-09-23] MEDS ORDERED: ROBAXIN PO PRN (17:54)
[2019-09-23] MEDS ORDERED: M.V.I.-12 10 ML, FOLIC ACID 1 MG, MAGNESIUM SULFATE 1 GM, THIAMINE 100 MG in NS 1,000 ML IV ONE (17:54)
[2019-09-23] MEDS ORDERED: BENTYL PO PRN (17:54)
[2019-09-23] MEDS ORDERED: ATARAX PO PRN (17:54)
[2019-09-23] MEDS ORDERED: VANCOMYCIN IV PER PHARMACY MISC SCH (18:15)
--- NOTE | 2019-09-23 19:05 | GENERAL SURGERY CONSULTATION ---
DATE: 09/23/2019 REQUESTING PHYSICIAN: Emergency Department. CONSULT CONCERNING: Splenic abscess. HISTORY OF PRESENT ILLNESS: A 64-year-old gentleman who initially presented to the emergency department complaining of sharp abdominal pain that jumps around in knots coming in different parts of the stomach. He said he has had surgery 2 years ago and he has had problems ever since. He also complained of several other symptoms in the emergency department but his main complaint was his abdominal pain. He describes as in the right upper quadrant and in the chest and the back, it is stabbing. He also reports some epigastric and suprapubic pain. He had a CT scan done in the emergency department that showed small lucent lesions and lesion with possibly splenic abscesses. I was asked to weigh an opinion. Patient does report still persistent abdominal pain. PAST MEDICAL HISTORY: Includes chronic pain, left leg numbness, WI, asthma, COPD, PTSD, anxiety, depression, history of reported schizophrenia. PAST SURGICAL HISTORY: Includes hernia repair, leg vein surgery. SOCIAL HISTORY: Current smoker. Reports 1/2 pint a day of alcohol. Reports marijuana intake. FAMILY HISTORY: Reviewed with the patient and noncontributory. ALLERGIES: None. HOME MEDICATIONS: Include Tylenol with codeine. REVIEW OF SYSTEMS: Full 14 systems reviewed, negative except as specified in HPI. PHYSICAL EXAMINATION: Vital Signs: Patient is currently afebrile. His vital signs stable. General: No acute distress. Alert, interactive male, looks stated age. HEENT: Normocephalic, atraumatic. Pupils equal, round, reactive to light. Mucous membranes moist. Oropharynx benign. Neck: Supple. Trachea midline. Cardiovascular: Regular rate and rhythm. Lungs: Grossly clear. Abdomen: Soft. Some mild diffuse tenderness. No peritoneal signs. Extremities: Moves all extremities. Neurologic: Grossly intact. Skin: No signs of jaundice. Vascular: All extremities perfused. LABORATORY: White blood count is normal, hematocrit is normal, platelet count normal. INR is normal. Remainder of labs normal. CT scan independently reviewed and radiology report reviewed. ASSESSMENT AND PLAN: A 64-year-old with splenic abscesses. 1. Splenic abscess. At this time, agree with getting echocardiogram to see if there is any kind of endocarditis and getting blood cultures to rule out any kind of bacteremia. He had a previous CT scan last month that did not show these areas and now they are showing it so there is concern that he has probably seeded his spleen. He is not toxic, It is not a drainable abscess so I would recommend just IV antibiotics with gram-positive and gram- negative coverage and seeing how he does. I will continue to follow with you. 2. Alcohol intake. At this time recommend either DT protocol or giving the patient beer with meals. 3. Multiple medical comorbidities currently being managed by the hospitalist so we are going to admit the patient. cc: MD KUMAR Lazo
--- NOTE | 2019-09-23 19:26 | HISTORY AND PHYSICAL ---
CHIEF COMPLAINT: Bilateral groin pain. HISTORY OF PRESENT ILLNESS: This is a 64-year-old gentleman with a 2 to 3 year history of intermittent bilateral groin and low abdominal pain that he reports as "I get a golf ball hail in my stomach." He has a history of peripheral vascular disease, undergoing an aorta fem-fem bypass in the past, which was found to be abscessed in August of 2016. At this time he was treated with antibiotics and discharged in transfer to Dr. Arteaga at [facility] in [place] for further treatment. The patient is unable to tell me how they treated him. He does states "they fixed all that shit." Since June 2017, he has had what looks like 9 ER visits complaining of these same symptoms, although he did have leg pain during this time and most of the times when he came in, he stated he was out of pain medicine and needed more. He did have 1 admission for suicidal ideation where he was admitted to [facility]. Mr. Brewer states that he is homeless. He walks between [place] and [place]. He states he spent more time in [place] during the year of 2018 with his visits there so we have no record of this time. CT of the abdomen and pelvis was performed in the emergency room, and he was found to have multiple small lucent lesions within the spleen with the possibility of multiple small splenic abscesses that could not be excluded. PAST MEDICAL HISTORY: 1. CAD. 2. Chronic obstructive pulmonary disease. 3. Hypertension. 4. Peripheral vascular disease. 5. PTSD while in the . 6. Anxiety. 7. History of hostile behavior. 8. Schizophrenia with noncompliance with medications. PAST SURGICAL HISTORY: Per the patient: 1. Bilateral femoral-femoral bypass. 2. Hernia surgery. SOCIAL HISTORY: He smokes about 2 packs a day. He drinks about a half a pint of alcohol a day, and he does smoke marijuana with his last drink being prior to coming to the emergency room. ALLERGIES: No known drug allergies. HOME MEDICATIONS: A list will be obtained by the nursing staff, and once reviewed, we will review and restart as appropriate. REVIEW OF SYSTEMS: Discussed with the patient with pertinent positives stated in the HPI. He denied any syncope, dizziness, chest pain, palpitations, any night sweats, any fevers or chills, any nausea, vomiting, diarrhea, constipation, black or bloody vomitus or stools, any hematuria, dysuria, frequency urgency. PHYSICAL EXAMINATION: GENERAL: This is a 64-year-old gentleman who is lying on the stretcher watching TV in no distress. VITAL SIGNS: Blood pressure is 104/86 with a heart rate of 73, respirations are 12 to 16, temperature is 97.9 degrees with O2 saturations 96% to 98% on room air. EYES: Pupils are equal, round, react to light. EOMs are intact. Sclerae are anicteric. HENT: Head is normocephalic, atraumatic. Mucous membranes are moist. NECK: Supple with trachea midline. CARDIOVASCULAR: Regular rate and rhythm. S1 and S2 are appreciated. No murmur. He has no lower extremity edema. Calves are nontender bilateral. PULMONARY: Breath sounds are clear with no increased work of breathing noted. Chest rise and fall symmetric with respiration. GASTROINTESTINAL: Soft, nondistended with bilateral lower quadrant tenderness with bowel sounds in all 4 quadrants. GENITOURINARY: No CVA or suprapubic tenderness. NEUROLOGIC: He is alert and oriented. SKIN: Warm and dry. LABORATORY DATA: WBC is 7.9 with hemoglobin 14.4, hematocrit 43.1, and platelets of 189,000. Sodium 139, potassium 4.2, BUN 9, creatinine 1 with a glucose of 78. Urinalysis is essentially negative. Urine drug screen reveals none detected. Blood alcohol 72. RADIOLOGIC DATA: Chest x-ray revealed no pneumonia. CT of the abdomen and pelvis revealed multiple new small lucent lesions within the spleen. Possibility of multiple small splenic abscesses cannot be excluded. ASSESSMENT: 1. Splenic abscesses. 2. Abdominal pain, right and left lower quadrants. 3. Hypertension. 4. History of coronary artery disease. 5. Peripheral vascular disease. 6. Alcohol use and abuse. 7. Tobacco abuse. 8. Posttraumatic stress disorder. PLAN: The patient will be admitted to [facility] for close monitoring. We will give supplemental oxygen as needed. He will be placed on telemetry. Blood cultures have been obtained. We will continue Zosyn q.6 hours. We will add vancomycin dosed per pharmacy. Check a CBC and CMP in the morning. We will identify his home medications. We will continue these as appropriate. Monitor for alcohol withdrawal, giving Ativan 1 mg IV q.4 hours p.r.n. withdrawal. We will give Bentyl, Atarax and Robaxin p.r.n. For gastric acid suppression, Prilosec. Dr. Holger Chen has been consulted. We will use a Librium taper. Further treatments pending hospital course. Dictated by YAIMA Reis for Tara Donato MD cc: YAIMA Reis MD
[2019-09-23] MEDS ORDERED: VANCOMYCIN 1,900 MG in NS 500 ML IV ONE (20:00)
[2019-09-23] MEDS: HEPARIN SUBQ SCH (21:08)
[2019-09-23] MEDS: NS 1,000 ML IV SCH (21:08)
[2019-09-23] MEDS: LIBRIUM PO SCH (23:10)
--- NOTE | 2019-09-23 23:55 | ECHO REPORT ---
ORDER DATE: 09/23/2019 MEASUREMENTS: 1. Septal thickness 0.8. Posterior wall thickness 0.8. Left ventricular internal diameter in diastole 5.2. Left ventricular internal diameter in systole 3.6. Aortic root 3.2. Left atrium 4.1. SUMMARY: 1. Technically difficult study due to limited acoustic window quality. 2. Aortic valve is trileaflet and demonstrates moderate sclerosis, particularly of noncoronary cusp and left coronary cusp. Aortic valve opening appears to be adequate. The peak gradient across aortic valve is less than 10 mmHg. There is mild aortic regurgitation. Mitral annular calcification is demonstrated. There is moderate mitral regurgitation. Tricuspid valve is without evidence of structural abnormality while pulmonic valve is not well demonstrated. There is mild tricuspid regurgitation and trace pulmonic insufficiency. Estimated systolic PA pressure by Doppler is 30 mmHg. Aortic root is normal in size. 3. Normal left ventricular dimensions demonstrated. The estimated left ventricular ejection fraction approximately 50%. There is akinesis of the basal to mid inferolateral wall. Left atrium is mildly enlarged. Right atrium and right ventricle are normal in size with normal right ventricular systolic function. 4. No pericardial effusion. 5. Appearance of inferior vena cava suggests normal central venous pressure. CONCLUSIONS: 1. Technically difficult study. 2. Aortic valve sclerosis without significant stenosis with mild aortic regurgitation. 3. Moderate mitral regurgitation. 4. Estimated left ventricular ejection fraction approximately 50% with akinesis of the basal to mid inferolateral wall. 5. Mild left atrial enlargement. cc: MD Munira Rossi CRNP
[2019-09-24] MEDS: ZOSYN 3.375 GM in NS 50 ML IV SCH ×5 (00:24→23:51)
[2019-09-24] MEDS: PRILOSEC PO SCH ×2 (05:40→06:05)
[2019-09-24] MEDS: LIBRIUM PO SCH ×3 (05:40→17:25)
--- NOTE | 2019-09-24 06:05 | GENERAL SURGERY PROGRESS NOTE ---
DATE: 09/24/2019 SUBJECTIVE: The patient seems to be doing okay. OBJECTIVE: Vital Signs: The patient is currently afebrile. His vital signs are stable. General: No acute distress. HEENT: Normocephalic, atraumatic. Pupils equal, round, reactive to light. Mucous membranes moist. Oropharynx benign. Neck: Supple. Trachea midline. Cardiovascular: Regular rate and rhythm. Lungs: Grossly clear. Abdomen: Soft. Some mild diffuse tenderness. No peritoneal signs. Extremities: Moves all extremities. Neurologic: Grossly intact. Skin: No signs of jaundice. Vascular: All extremities perfused. LABORATORY: None this morning as of yet. Blood cultures still pending. Echocardiogram was negative for any kind of heart vegetations, although it is somewhat limited. ASSESSMENT AND PLAN: A 64-year-old with possible splenic abscesses. 1. Splenic abscess. At this time, agree with his IV antibiotics and continued monitoring. No immediate plans for surgical intervention. His echocardiogram was negative for vegetations, but it was somewhat limited. Would like to follow up with his blood culture to see if he is bacteremic. 2. Alcohol intake at this time. Defer to the hospitalist. 3. Multiple medical comorbidities. We will defer to the hospitalist. cc: Holger Chen MD
[2019-09-24 06:10] LABS: HEMATOCRIT 35.6 % (42.0-52.0); HEMOGLOBIN 11.6 g/dL (14.0-18.0); MCH 31.9 PG (27-31); MCHC 32.6 g/dL (33-37); MCV 97.8 FL (81-99); MPV 11.2 FL (7.4-10.4); RBC 3.64 XMIL (4.7-6.1); RDW 13.3 % (11.5-14.5); WBC 5.21 X1000 (4.8-10.8)
[2019-09-24 06:34] LABS: AGAP 9; ALB/GLOB RATIO 1.4; ALBUMIN 3.4 g/dL (3.5-5.0); ALKALINE PHOSPHATASE 80 U/L (32-122); BUN 9 mg/dL (8-22); CALCIUM 8.3 mg/dL (8.8-10.2); CHLORIDE 108 mmol/L (98-107); COSMO 279; CREATININE 1.1 mg/dL (0.7-1.2); ESTIMATED GFR > 60; GLUCOSE 83 mg/dL (70-104); GOT 21 U/L (10-34); GPT 22 U/L (10-44); SODIUM 141 mmol/L (136-145); TCO2 24 mmol/L (25-35); TOTAL BILIRUBIN 0.57 mg/dL (0.20-1.00); TOTAL PROTEIN 5.8 g/dL (6.3-8.3)
[2019-09-24] MEDS: HEPARIN SUBQ SCH ×2 (08:26→20:00)
[2019-09-24] MEDS: NS 1,000 ML IV SCH ×2 (10:14→16:00)
--- NOTE | 2019-09-24 20:51 | PROGRESS NOTE ---
DATE: 09/24/2019 SUBJECTIVE: The patient is resting comfortably in bed. He has no complaints. No acute events noted overnight. OBJECTIVE: Vital Signs: Temperature 97.5 degrees, blood pressure 107/77, heart rate 73, respirations 21, O2 saturation 97% on room air. General: This is a chronically ill-appearing elderly male lying in bed in no acute distress. Heart: S1, S2 normal. Regular rate and rhythm. Lungs: Clear to auscultation bilaterally. Abdomen: Positive bowel sounds. Soft, nontender, nondistended. Extremities: No edema, no cyanosis. Neurologic: The patient is alert and oriented x3. LABORATORY DATA: White blood cell count 5.2, hemoglobin 11, hematocrit 35, platelets 142,000. Sodium 141, potassium 4, chloride 108, CO2 24, creatinine 1.1, glucose 83, calcium 8.3. ASSESSMENT AND PLAN: 1. Acute alcohol intoxication. We will continue on Ativan as needed and Librium. Continue to monitor closely for withdrawal. 2. Splenic abscesses. Blood cultures have been obtained. We will continue with broad-spectrum antibiotics. 3. Alcohol dependence. The patient has been counseled about alcohol cessation. 4. Deep vein thrombosis prophylaxis. Continue on heparin. cc: Tara Donato MD
[2019-09-24] MEDS: VANCOMYCIN 1,500 MG in NS 250 ML IV SCH (21:00)
[2019-09-25] MEDS: LIBRIUM PO SCH ×3 (02:45→17:05)
[2019-09-25] MEDS: ZOSYN 3.375 GM in NS 50 ML IV SCH ×3 (06:00→17:05)
[2019-09-25] MEDS: PRILOSEC PO SCH (06:05)
[2019-09-25 06:16] LABS: BASO# 0.11 X1000 (0.0-0.2); BASO% 2.7 % (0.0-0.8); EOS# 0.21 X1000 (0.0-0.7); EOS% 5.1 % (0.0-10.0); HEMATOCRIT 37.4 % (42.0-52.0); IMM GRAN# 0.02 X1000 (0.0-0.04); IMM GRAN% 0.5 % (0.0-0.5); LYMPH# 0.82 X1000 (1.2-3.4); LYMPH% 19.8 % (20.5-51.1); MCH 31.3 PG (27-31); MCHC 32.1 g/dL (33-37); MCV 97.7 FL (81-99); MONO# 0.53 X1000 (0.11-0.59); MONO% 12.8 % (1.7-9.3); MPV 11.4 FL (7.4-10.4); NEUT# 2.46 X1000 (1.4-6.5); NEUT% 59.1 % (42.2-75.2); PLT 137 X1000 (130-400); RBC 3.83 XMIL (4.7-6.1); RDW 13.1 % (11.5-14.5); WBC 4.15 X1000 (4.8-10.8)
--- NOTE | 2019-09-25 06:25 | GENERAL SURGERY PROGRESS NOTE ---
DATE: 09/25/2019 SUBJECTIVE: Patient seems to be doing okay in less pain. OBJECTIVE: Vital Signs: Patient is currently afebrile. Vital signs are stable. General: No acute distress. HEENT: Normocephalic, atraumatic. Pupils equal, round, and reactive to light. Mucous membranes moist. Oropharynx benign. Neck: Supple. Trachea midline. Cardiovascular: Regular rate and rhythm. Lungs: Grossly clear. Abdomen: Soft. No real tenderness. Extremities: Moves all extremities. Neurologic: Grossly intact. Skin: No signs of jaundice. Vascular: All extremities perfused. LABORATORY: White blood cell count is normal. MICROBIOLOGY: Preliminary no growth on blood culture. ASSESSMENT AND PLAN: A 64-year-old gentleman with possible splenic abscess. Splenic abscess. At this time, his echo although limited, does not show any vegetation. He has not had any blood cultures that are positive. We may need to consider rescanning him with IV contrast to see if he actually does have splenic abscesses or if there are areas where the contrast had not perfused completely. Ideally, to do this, it is because it would determine if he needs long-term antibiotics if he truly has the splenic abscess. If he does not, we could do a shortened course of antibiotics and just monitor him. If the repeat CT scan does show persistence of these abscesses, may need to get a transesophageal echo to really rule out cardiac vegetation and potentially do a bubble study to see if he has a patent foramen ovale. We will continue to monitor. cc: Holger Chen MD
[2019-09-25 06:29] LABS: AGAP 11; BUN 10 mg/dL (8-22); CALCIUM 8.9 mg/dL (8.8-10.2); CHLORIDE 108 mmol/L (98-107); COSMO 280; CREATININE 1.1 mg/dL (0.7-1.2); ESTIMATED GFR > 60; GLUCOSE 93 mg/dL (70-104); POTASSIUM 4.2 mmol/L (3.5-5.1); SODIUM 141 mmol/L (136-145); TCO2 22 mmol/L (25-35)
[2019-09-25] MEDS: HEPARIN SUBQ SCH ×2 (09:05→23:02)
--- NOTE | 2019-09-25 13:48 | PROGRESS NOTE ---
DATE: 09/25/2019 SUBJECTIVE: The patient is resting. He has no complaints. OBJECTIVE: Vital Signs: Temperature 97 degrees, blood pressure 90/64, heart rate 60, respirations 16, O2 saturation is 100% on room air. General: This is an elderly male lying in bed, in no acute distress. Heart: S1, S2 normal. Regular rate and rhythm. Lungs: Clear to auscultation bilaterally. Abdomen: Positive bowel sounds. Soft, nontender, nondistended. Extremities: No edema, no cyanosis. Neurologic: The patient is alert and oriented x3. Labs: Hemoglobin 12, hematocrit 37, platelets 137,000. Sodium 141, potassium 4.2, chloride 108, CO2 of 22, BUN 10, creatinine 1.1, glucose 93. ASSESSMENT AND PLAN: 1. Acute alcohol intoxication. The patient is on Librium. Continue to monitor closely for withdrawal. 2. Possible splenic abscesses. The repeat CT of abd/pelvis with IV constrast shows mild improvement in the lesions. The blood cultures remain negative. The echo did not reveal and obvious thrombus or vegetation. The patient is afebrile. Will continue on IV antibiotic therapy. 3. Suspected CAD. The echo revealed basal and inferolateral hypokinesis. Will check a lipid profile and start aspirin. Will also order a stress test to be done tomorrow. 4. Alcohol dependence. The patient has been counseled about alcohol cessation. 5. Constipation. Will start miralax and colace. 6. Hypotension. We will hold the patient's antihypertensives. 7. Severe PVD. Aware. 8. Gastroesophageal reflux disease. Continue on Prilosec. 9. Deep vein thrombosis prophylaxis. Continue on heparin. cc: Tara Donato MD [facility]
[2019-09-25] MEDS: NS 1,000 ML IV SCH (13:53)
--- NOTE | 2019-09-25 13:55 | Diag Imaging Result Doc PS360 ---
CT ABD/PELVIS W/IV CONT ONLY - 09/25/2019 INDICATION: splenic abscess COMPARISON: 09/23/2019 FINDINGS: The lung bases are clear and the heart size is normal. There are couple of tiny hypodensities in the spleen. These have decreased since prior. Otherwise all abdominal organs remain normal. There is mild constipation. No bowel obstruction or inflammation. There is extremely severe vascular disease of the abdominal aorta and particularly its pelvic branches. There is probably complete occlusion of the right iliac artery system and critical stenosis of the left common iliac artery. No free air or free fluid. Urinary bladder and rectum are normal. There are moderate degenerative changes of the spine. No acute or suspicious bony lesion. IMPRESSION: Slight improvement in the tiny nonspecific hypoenhancing areas in the spleen. Moderate constipation. No new abnormalities. This exam was performed using automated exposure control, adjustment of mA or kV according to patient size, and/or use of iterative reconstruction technique Electronically signed by Hill Peralta 09/25/2019 1:53 PM
[2019-09-25] MEDS: VANCOMYCIN 1,500 MG in NS 250 ML IV SCH (23:02)
[2019-09-25] MEDS: MIRALAX PO SCH (23:03)
[2019-09-25] MEDS: COLACE PO SCH (23:03)
[2019-09-26] MEDS: LIBRIUM PO SCH ×3 (01:53→15:13)
[2019-09-26] MEDS: ZOSYN 3.375 GM in NS 50 ML IV SCH ×4 (01:54→21:13)
--- NOTE | 2019-09-26 06:35 | GENERAL SURGERY PROGRESS NOTE ---
DATE: 09/26/2019 SUBJECTIVE: Patient seems to be doing okay. He was transferred out of the [facility]. He did have a repeat CT scan that showed some mild improvement in these hypoechoic areas in the splenic region suggesting that he does potentially for sure have an abscess. OBJECTIVE: Vital Signs: Patient is currently afebrile. His vital signs are stable. General: No acute distress. HEENT: Normocephalic, atraumatic. Pupils equal, round, and reactive to light. Mucous membranes moist. Oropharynx benign. Neck: Supple. Trachea midline. Cardiovascular: Regular rate and rhythm. Lungs: Grossly clear. Abdomen: Soft. Nontender at this time. Extremities: Moves all extremities. Neurologic: Grossly intact. Skin: No signs of jaundice. Vascular: All extremities perfused. LABORATORY: Reviewed from yesterday. White blood cell count is actually low. CT scan independently reviewed and radiology report reviewed.Microbiology: No growth. ASSESSMENT AND PLAN: A 64-year-old gentleman with splenic abscess. 1. Splenic abscess. At this time, the etiology of the splenic abscess is still unknown. His blood cultures have been negative. His echocardiogram was a transthoracic but, it was somewhat limited as they could not fully rule out vegetations on the heart. May need to consider transesophageal echocardiogram, but we will defer to the hospitalist at this point since the CT scan did confirm there is at least something there. We will need to consider IV antibiotics and long-term IV antibiotics. The patient is not unstable and does not have any peritoneal signs so at this point no indication for drainage or surgery, and there areas are very small. 2. Coronary artery disease. At this time, defer to the hospitalist. Apparently, he has got a stress test ordered today. cc: Holger Chen MD
[2019-09-26 06:47] LABS: BASO# 0.07 X1000 (0.0-0.2); BASO% 1.8 % (0.0-0.8); EOS# 0.24 X1000 (0.0-0.7); EOS% 6.2 % (0.0-10.0); HEMATOCRIT 37.2 % (42.0-52.0); HEMOGLOBIN 11.7 g/dL (14.0-18.0); LYMPH# 1.04 X1000 (1.2-3.4); LYMPH% 26.9 % (20.5-51.1); MCH 30.8 PG (27-31); MCHC 31.5 g/dL (33-37); MCV 97.9 FL (81-99); MONO# 0.45 X1000 (0.11-0.59); MONO% 11.6 % (1.7-9.3); MPV 10.9 FL (7.4-10.4); NEUT# 2.07 X1000 (1.4-6.5); NEUT% 53.5 % (42.2-75.2); PLT 150 X1000 (130-400); RDW 13.2 % (11.5-14.5); WBC 3.87 X1000 (4.8-10.8)
[2019-09-26 07:13] LABS: AGAP 10; BUN 11 mg/dL (8-22); CALCIUM 8.9 mg/dL (8.8-10.2); CHLORIDE 109 mmol/L (98-107); CHOLESTEROL 190 mg/dL (0-200); COSMO 284; ESTIMATED GFR > 60; GLUCOSE 93 mg/dL (70-104); HDL 42 mg/dL (35-55); LDL 118 mg/dL; POTASSIUM 4.2 mmol/L (3.5-5.1); SODIUM 143 mmol/L (136-145); TCO2 24 mmol/L (25-35); TRIGLYCERIDES 151 mg/dL (39-160); VLDL 30 mg/dL
--- NOTE | 2019-09-26 07:13 | EKG Report ---
Test Performed on : 09/26/2019 07:02:30 AM Test Reason : abnormal echo Blood Pressure : / mmHG Vent. Rate : 053 BPM Atrial Rate : 053 BPM P-R Int : 154 ms QRS Dur : 090 ms QT Int : 466 ms P-R-T Axes : 057 025 021 degrees QTc Int : 437 ms Sinus bradycardia. Otherwise normal ECG When compared with ECG of 23-SEP-2019 13:00, (Unconfirmed) Vent. rate has decreased BY 37 BPM Criteria for Inferior infarct are no longer present Confirmed by Heather MUIR, Lamonte Pugh ([id number]) on 09/26/2019 9:25:20 AM
[2019-09-26] MEDS: PRILOSEC PO SCH (07:30)
[2019-09-26] MEDS: MIRALAX PO SCH ×2 (09:00→21:14)
[2019-09-26] MEDS: HEPARIN SUBQ SCH ×2 (09:00→21:13)
[2019-09-26] MEDS: COLACE PO SCH ×2 (09:00→21:13)
[2019-09-26] MEDS ORDERED: LEXISCAN ONE (09:32)
[2019-09-26] MEDS: ASPIRIN PO SCH ×2 (10:35→11:37)
[2019-09-26] MEDS: NS 1,000 ML IV SCH ×2 (11:39→21:12)
--- NOTE | 2019-09-26 12:54 | CARDIOLOGY CONSULTATION ---
DATE: 09/26/2019 CHIEF COMPLAINT: Bilateral groin pain. HISTORY OF PRESENT ILLNESS: Mr. Brewer is a 64-year-old white male with a history of coronary artery disease. He presented with a history of lower abdominal pain. He says this has been going on for quite some time. He reports no recent fevers. No nausea or vomiting. He seems like he is essentially homeless and has been spending a lot of time in [place] as well as in [place]. We do not have any records on him at the [facility]. During evaluations in the ER, he was found to have some lucent lesions within the spleen concerning for possible abscesses. The patient denies any recent infectious symptoms, poor healing wounds, fevers, cough. He reports no exertional chest pain. He denies any orthopnea. PAST MEDICAL HISTORY: Significant for 1. Coronary disease. I do not have any objective data on this. He has not seen a endless track vehicle mechanic in this area. 2. Peripheral vascular disease. 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 3. COPD. 4. Hypertension. 5. PTSD/anxiety/schizophrenia. SOCIAL HISTORY: Smokes 2 packs per day. He reports that he is not willing to quit. He drinks a half a pint of alcohol a day. He does occasionally smoke marijuana. FAMILY HISTORY: Hypertension. REVIEW OF SYSTEMS: A 10 system review of systems is negative except for those things mentioned in HPI. PHYSICAL EXAMINATION: Vital Signs: He is afebrile. His heart rate is 61, blood pressure 95/70. Generally: He is in no acute distress. HEENT: Oropharynx is moist. He has poor dentition. His eye examination has pink conjunctivae, white sclerae. Neck: Examination shows no obvious thyromegaly or thyroid tenderness. Cardiovascular: He sounds to be in a regular rate and rhythm. He has no obvious murmurs. He has no S3. He has no lower extremity edema. Chest: Sounds clear bilaterally. He has no increased work of breathing. Abdomen: Soft, nontender, nondistended. He has no obvious organomegaly. Skin: Warm and dry throughout without any rashes. Neurological: He is moving all extremities well. He has no lateralizing deficits. PERTINENT DATA: His most recent abdomen and pelvis CT demonstrates slight improvement in tiny nonspecific hypoenhancing areas in the spleen. He has extremely severe vascular disease in the abdominal aorta as well as the pelvic branches of the abdominal aorta, probable complete occlusion in the right iliac and critical stenosis of the left common iliac. His echocardiogram was a difficult study with a normal ejection fraction of 50%. He has akinesis of the basal to mid inferior lateral wall. No obvious vegetation or clot was seen. His electrocardiogram reviewed by me from the at 7:02 shows sinus rhythm. He has small inferior Q-waves. His EKG from the at 13:00, again inferior Q-waves, sinus rhythm. His nuclear scan reviewed by me shows a fixed inferior defect with Q-waves on his EKG. He has an ejection fraction of 43%. His lab data demonstrates a white count of 3.8, hematocrit 37, platelet count 150,000. His sodium is 143, potassium 4.2, his BUN is 11, creatinine is 1. His LDL is 118. ASSESSMENT: Mr. Brewer is a 64-year-old gentleman with a history of coronary disease who presents with abdominal pain. PLAN: It would be reasonable to perform a transesophageal echocardiogram on Sunday. I will make arrangements to have that done. I will initiate a high-intensity statin on the patient. He is already on aspirin. He can follow up with his primary endless track vehicle mechanic. His stress shows a fixed inferior defect with mild reduction in his EF. I would not pursue cath at this point as he is asymptomatic and reports a hx of [place] in the past. We will continue to medically manage his CAD. cc: Dick Bill MD MTDD
--- NOTE | 2019-09-26 14:36 | Diag Imaging Result Document ---
PROCEDURE NAME: MYOCARDIAL PERF SCAN, STR/REST - 09/26/2019 PROCEDURE: Lexiscan Cardiolite stress test. DESCRIPTION OF PROCEDURE IN DETAIL: Lexiscan was infused per standard protocol. There was no chest pain. Baseline electrocardiogram revealed normal sinus rhythm with nonspecific ST-T changes in the inferolateral leads. Stress electrocardiogram was nondiagnostic given baseline ST-T changes. Total of 11.8 mCi of Cardiolite was injected for the rest phase; 31.2 mCi of Cardiolite was injected for the stress phase. Gated SPECT images were obtained in standard views. Images revealed left ventricle was dilated at 145 mL end-diastolic volume. There is chest wall and diaphragmatic attenuation. There is large size, severe grade, fixed defect in the inferior wall diagnostic of infarct or scar. In addition, there is large size, severe grade, fixed defect in the inferolateral wall diagnostic of infarct or scar. There is no evidence of ischemia. There is also a fixed defect in the inferoseptal wall. Left ventricular ejection fraction by gated SPECT was 43%. There is inferior wall and inferolateral wall akinesis. CONCLUSIONS: 1. No chest pain. 2. Nondiagnostic Lexiscan stress electrocardiogram. 3. Myocardial perfusion images revealed no evidence of ischemia. 4. There is large size, severe grade, fixed defect in the inferior wall; large size, severe grade, fixed defect in the inferolateral wall diagnostic of infarct or scar. In addition, there is fixed defect in the inferoseptal wall diagnostic of scar. 5. Left ventricular ejection 43%. There is inferior and inferolateral hypokinesis. cc: MD Tara Calzada MD
--- NOTE | 2019-09-26 17:43 | PROGRESS NOTE ---
DATE: 09/26/2019 SUBJECTIVE: The patient is resting comfortably. He has no complaints. OBJECTIVE: Vital Signs: Temperature 98.1 degrees, blood pressure 100/73, heart rate 64, respirations 22, and O2 saturation is 100% on room air. General: This is a chronically ill- appearing elderly male lying in bed in no acute distress. Heart: S1, S2 normal. Regular rate and rhythm. Lungs: Equal air entry bilaterally. No wheezing. No rales. No rhonchi. Abdomen: Positive bowel sounds. Soft, nontender, nondistended. Extremities: No edema. No cyanosis. Neurologic: The patient is alert and oriented x3. LABORATORIES: White blood cell count 3.8, hemoglobin 11, hematocrit 37, platelets 150,000. Sodium 143, potassium 4.2, chloride 109, CO2 of 24, BUN 11, creatinine 1, glucose 93. LDL 118. ASSESSMENT AND PLAN: 1. Acute alcohol intoxication. Resolved. The patient is currently on a Librium taper. Monitor closely for withdrawal. 2. Possible splenic abscesses. The patient is currently on IV antibiotics. So far the blood cultures remain negative. The patient is scheduled to undergo a ROSALINDA on Sunday. 3. Coronary artery disease with a history of myocardial infarction. The patient's stress test today was noted to be abnormal likely reflective of the patient's prior myocardial infarction. We will continue with medical management. 4. Alcohol dependence. The patient has been counseled about cessation. 5. Constipation. Continue with laxative therapy. 6. Severe peripheral vascular disease. Aware. 7. Gastrointestinal prophylaxis. Continue on Prilosec. 8. Deep vein thrombosis prophylaxis. Continue on heparin. cc: Tara Donato MD [facility]ENTER[facility]
[2019-09-26] MEDS ORDERED: LIPITOR PO SCH (21:00)
[2019-09-26] MEDS: VANCOMYCIN 1,500 MG in NS 250 ML IV SCH (21:12)
[2019-09-27] MEDS: NS 1,000 ML IV SCH ×2 (02:04→05:44)
[2019-09-27] MEDS: ZOSYN 3.375 GM in NS 50 ML IV SCH ×3 (02:05→14:32)
[2019-09-27] MEDS: PRILOSEC PO SCH (06:16)
[2019-09-27 07:18] LABS: HEMATOCRIT 37.5 % (42.0-52.0); HEMOGLOBIN 11.9 g/dL (14.0-18.0); MCH 31.2 PG (27-31); MCHC 31.7 g/dL (33-37); MCV 98.4 FL (81-99); MPV 11.5 FL (7.4-10.4); RBC 3.81 XMIL (4.7-6.1); RDW 13.4 % (11.5-14.5); WBC 4.89 X1000 (4.8-10.8)
[2019-09-27 07:43] LABS: AGAP 11; BUN 15 mg/dL (8-22); CHLORIDE 107 mmol/L (98-107); COSMO 282; CREATININE 1.1 mg/dL (0.7-1.2); ESTIMATED GFR > 60; GLUCOSE 90 mg/dL (70-104); SODIUM 141 mmol/L (136-145); TCO2 23 mmol/L (25-35)
[2019-09-27] MEDS: LIBRIUM PO SCH (08:03)
[2019-09-27] MEDS: HEPARIN SUBQ SCH (10:54)
[2019-09-27] MEDS: MIRALAX PO SCH (10:54)
[2019-09-27] MEDS: COLACE PO SCH (10:55)
[2019-09-27] MEDS: ASPIRIN PO SCH (10:55)
--- NOTE | 2019-09-27 11:35 | GENERAL SURGERY PROGRESS NOTE ---
DATE: 09/27/2019 SUBJECTIVE: The patient is doing okay. He denies pain, nausea, vomiting, fever, or chills. OBJECTIVE: Vital Signs: He is afebrile. Vital signs are stable. General: He is awake, alert, oriented x3, in no acute distress. GI: Soft, nontender, nondistended. Good bowel sounds. LABORATORY: White blood cell count 5, hemoglobin 12, hematocrit 37. ASSESSMENT AND PLAN: A 64-year-old male with splenic abscess, etiology unknown. He is asymptomatic. Continue IV antibiotics with repeat imaging at some point. Echocardiogram is planned next week to rule out a cardiac source. cc: Alfonso Lyons MD
--- NOTE | 2019-09-27 16:01 | PROGRESS NOTE ---
DATE: 09/27/2019 SUBJECTIVE: The patient is resting comfortably in bed. No acute events noted overnight. OBJECTIVE: Vital Signs: Temperature 97.7 degrees, blood pressure 130/72, heart rate 71, respirations 20, O2 saturation is 96% on room air. General: This is a chronically ill-appearing elderly male lying in bed in no acute distress. Heart: S1, S2 normal. Regular rate and rhythm. Lungs: Clear to auscultation bilaterally. Abdomen: Positive bowel sounds. Soft, nontender, nondistended. Extremities: No edema, no cyanosis. Neurologic: The patient is alert and oriented x3. LABORATORY: Hemoglobin 11, hematocrit 37, platelets 151,000. BUN 15, creatinine 1.1, glucose 90, sodium 141, potassium 4. ASSESSMENT AND PLAN: 1. Alcohol dependence. Continue on the Librium taper. 2. Splenic abscesses. Continue with IV antibiotics. The blood cultures remain negative. The patient is scheduled to undergo a ROSALINDA on Sunday. 3. Constipation. Continue with laxative therapy. 4. Coronary artery disease with a history of myocardial infarction. Aware. Continue on the current cardiac medications. 5. Severe peripheral vascular disease. Aware. 6. Gastrointestinal prophylaxis. Continue on Prilosec. 7. Deep vein thrombosis prophylaxis. Continue on heparin. cc: Tara Donato MD
[2019-09-27 16:02] VITALS: BP 127/80
--- NOTE | 2019-09-30 07:23 | DISCHARGE SUMMARY ---
ADMISSION DATE: 09/23/2019 DISCHARGE DATE: 09/27/2019 FINAL DISCHARGE DIAGNOSES: 1. Alcohol dependence. 2. Splenic abscesses. 3. Constipation. 4. Coronary artery disease with a history of myocardial infarction. 5. Severe peripheral vascular disease. CONSULTATIONS: 1. Cardiology consultation with Dr. Bill. 2. General surgery consultation with Dr. Chen. IMAGIN. CT of the abdomen and pelvis performed on 09/23/2019, which revealed multiple new small lucent lesions within the spleen. Possible splenic abscesses. 2. Echocardiogram performed on 09/23/2019, which revealed an ejection fraction of 50% with akinesis of the basal to mid inferolateral wall. 3. CT of the abdomen and pelvis performed on 09/25/2019, which reveals tiny nonspecific hypoenhancing areas in the spleen. Moderate constipation. 4. Myocardial perfusion scan performed on 09/26/2019, which reveals a large to severe grade fixed defect in the inferior wall, severe grade fixed defect in the inferolateral wall, diagnostic of an infarct or scar. HOSPITAL COURSE: Mr. Brewer is a 64-year-old male with a history of alcohol and tobacco dependence as well as peripheral vascular disease and coronary artery disease, who presented to the ER with abdominal pain. A CT of the abdomen and pelvis was done that revealed multiple enhancing lesions in the spleen, suggestive of a possible splenic abscess. The patient was admitted to the hospitalist service and general surgery was consulted. Broad-spectrum antibiotics were initiated and blood cultures were obtained. Over the course of the hospitalization, the blood cultures remained negative and the patient remained afebrile. However, there was still concern about possible endocarditis. An echocardiogram was done that did not reveal an obvious vegetation or thrombus. Cardiology was consulted for consideration of a ROSALINDA to rule out endocarditis. The patient was scheduled to undergo a ROSALINDA on 09/29/2019. However, the patient decided to leave the hospital on 09/27/2019 against medical advice. The patient was advised that he ran the risk of disability and even if he left the hospital without completing his therapy. The patient stated that he was willing to take the risk and left the hospital against medical advice. cc: Tara Donato MD
== END 2019-09-27 18:19 | disposition left against medical advice (07) ==
LOC: ED 12:37 → INTOOBSV 20:05 → 2N 20:05 → 4N 09-25 18:00
PROVIDERS: ATTEND Internal Medicine

== ENCOUNTER 2019-09-27 19:57 | Observation (INO) ==
[2019-09-27 21:06] LABS: BASO# 0.12 X1000 (0.0-0.2); BASO% 2.1 % (0.0-0.8); EOS# 0.17 X1000 (0.0-0.7); EOS% 2.9 % (0.0-10.0); HEMATOCRIT 39.6 % (42.0-52.0); HEMOGLOBIN 12.8 g/dL (14.0-18.0); LYMPH# 1.21 X1000 (1.2-3.4); LYMPH% 20.7 % (20.5-51.1); MCH 31.1 PG (27-31); MCHC 32.3 g/dL (33-37); MCV 96.4 FL (81-99); MPV 10.6 FL (7.4-10.4); NEUT# 3.65 X1000 (1.4-6.5); NEUT% 62.3 % (42.2-75.2); PLT 185 X1000 (130-400); RBC 4.11 XMIL (4.7-6.1); RDW 13.1 % (11.5-14.5); WBC 5.85 X1000 (4.8-10.8)
[2019-09-27 21:23] LABS: AGAP 13; BUN 13 mg/dL (8-22); CALCIUM 9.5 mg/dL (8.8-10.2); CHLORIDE 107 mmol/L (98-107); COSMO 286; CREATININE 1.1 mg/dL (0.7-1.2); ESTIMATED GFR > 60; GLUCOSE 46 mg/dL (70-104); SODIUM 145 mmol/L (136-145); TCO2 25 mmol/L (25-35)
--- NOTE | 2019-09-27 21:46 | Diag Imaging Result Doc PS360 ---
EXAM: CHEST-1 VIEW HISTORY: dyspnea TECHNIQUE: Single view COMPARISON: 09/23/2019 FINDINGS: Poor inspiratory effort. The heart is not enlarged. The vessels are not distended. There are no infiltrates. No effusion identified. IMPRESSION: Negative exam. Follow-up PA and lateral recommended. Electronically signed by Jonah Rivera 09/27/2019 9:44 PM
--- NOTE | 2019-09-27 22:17 | PROVIDER DOCUMENTATION ---
This chart was entered by Demi Avitia Scribe, acting as scribe for Merlyn Johnson MD. HPI-General Adult - General Chief Complaint: Shortness of Breath Stated Complaint: sob Time Seen by Provider: 09/27/19 20:10 Source: patient Allergies/Adverse Reactions: Patient Allergies Allergy/AdvReac Type Severity Reaction Status Date / Time No Known Allergies Allergy Verified 09/27/19 21:18 Home Medications: Home Medication List Medication Instructions Recorded Confirmed Last Taken Type ATORVAstatin [Lipitor] 1 tab PO DAILY 09/23/19 09/27/19 Unknown History Aspirin 1 tab PO DAILY 09/23/19 09/27/19 Unknown History Cyclobenzaprine [Flexeril] 1 tab PO BID PRN 09/23/19 09/27/19 Unknown History Fluoxetine HCl [Prozac] 1 tab PO DAILY 09/23/19 09/27/19 Unknown History - History of Present Illness -Gen Adult Nature of Presenting Problems: 64 y/o male presents to the ED via EMS with complaint of SOB. The patient states he left the third or fourth floor of this hospital earlier today because he felt claustrophobic and needed to get out and walk. He states he made it four blocks and began feeling short of breath and dizzy and almost stumbled out in front of a car and the shortness of breath has resolved now because "I have calmed down". He denies chest pain. Was admitted for a spleenic abscess and NSTEMI. Location of Pain/Injury: reports: generalized Quality of Pain: reports: none Onset/Duration: reports: unsure Timing: reports: resolved prior to arrival Modifying Factors: worse with: exercise Associated Symptoms: reports: shortness of breath, other (dizzy). denies: chest pain Review of Systems - Adult - REVIEW OF SYSTEMS - ADULT Constitutional: reports: no symptoms reported Eyes: reports: no symptoms reported Ears, Nose, Mouth & Throat: reports: no symptoms reported Cardiovascular: denies: chest pain, palpitations, syncope Respiratory: reports: dyspnea on exertion, shortness of breath. denies: hemoptysis Gastrointestinal: reports: no symptoms reported Genitourinary: reports: no symptoms reported Musculoskeletal: reports: no symptoms reported Integumentary: reports: no symptoms reported Neurological: reports: dizziness/vertigo. denies: headache/migraines, syncope Psychiatric: reports: no symptoms reported Endocrine: reports: no symptoms reported Hematologic/Lymphatic: reports: no symptoms reported Allergic/Immunologic: reports: no symptoms reported All Other Systems: Reviewed and Negative Past History - Adult - PAST MEDICAL HISTORY-ADULT Review of Records: reports: Old Records Reviewed, Nursing Assessment Review, Medications Reviewed Major Childhood Illnesses: reports: denies history Cardiovascular: reports: CAD, HTN, hyperlipidemia, PVD (BLE stents) Respiratory: reports: asthma, COPD Gastrointestinal: reports: GERD Obstetrical/Gynecological: reports: denies history Genitourinary: reports: denies history Musculoskeletal: reports: chronic pain Neurological: reports: denies history Psychiatric: reports: anxiety, depression Endocrine/Immune: reports: denies history Other Conditions: reports: denies history - PRIOR SURGERIES/PROCEDURES Surgical/Procedure History: reports: reviewed, not pertinent, hernia repair, other - IMMUNIZATION STATUS Childhood Immunizations: UTD, See Nurse Assessment Flu Vaccine: See Nurse Assessment - FAMILY HISTORY Family History: reviewed, not pertinent - SOCIAL HISTORY Smoking: cigarettes Provider spent 3-5 mins advising pt. on dangers of tobacco.: Discussed manners to quit use, and f/u contacts for add'l counseling. Physical Exam-General - PHYSICAL EXAM-ADULT Initial Vital Signs Reviewed: Yes - CONSTITUTIONAL General Appearance: alert, no apparent distress - HEAD, EARS, NOSE, MOUTH & THROAT HENMT: normocephalic/atraumatic - NECK Neck: full range of motion, supple - RESPIRATORY Respiratory: lungs clear, normal breath sounds. negative: rales, rhonchi, wheezing - CARDIOVASCULAR Cardiovascular: regular rate, rhythm, no edema - GASTROINTESTINAL (ABDOMEN) Abdominal Exam: non tender, soft - MUSCULOSKELETAL Back Exam: no CVA tenderness, no vertebral tenderness Extremity: normal gait, normal inspection, no pedal edema - SKIN Integumentary: normal color, warm/dry. negative: diaphoresis - NEUROLOGIC Neurologic: grossly normal, no motor/sensory deficits - PSYCHIATRIC Psych/Mental Status: normal thought content, normal thought process Progress - PLAN OF CARE/RESULTS Progress/Plan/Lab Results: Vital Signs - 8 hr 09/27/19 19:57 Temperature 97.6 F Pulse Rate 60 Respiratory Rate 16 Blood Pressure 111/82 O2 Sat by Pulse Oximetry 100 Dyspnea with recent NSTEMI and spleen abscess. Per today's progress note pt is scheduled to have a ROSALINDA. Will further evaluate for acute causes of dyspnea and will readmit. Result Diagrams: 09/27/19 20:49 09/27/19 20:49 - REASSESSMENT Reassessment #1 Status: improving (Feeling well, no dyspnea no chest pain. Mildly elevated BNP. Discussed case with Dr. Maya, hospitalist, who will see and readmit pt.) - EKG 1 Time of EKG reading by physician:: 20:15 EKG Read and Signed by:: Merlyn Johnson EKG Interpretation (*Must complete 3 of following elements*): Normal Rate: 61 Rhythm: NSR Ava: normal MS Interval: normal - XRAY 1 XRAY Study: Chest (EXAM: CHEST-1 VIEW HISTORY: dyspnea TECHNIQUE: Single view COMPARISON: 09/23/2019 FINDINGS: Poor inspiratory effort. The heart is not enlarged. The vessels are not distended. There are no infiltrates. No effusion identified. IMPRESSION: Negative exam. Follow-up PA and lateral recommended.) - CONSULTS/PCP/HOSPITALIST Notification #1 *Consult/PCP/Hospitalist*: Hospitalist, Dr. Maya Time Discussed: 21:59 Reason/Comments: + troponins, splenic abscess Consult Disposition: Admit Departure - Departure Date of Disposition Decision: 09/27/19 Time of Disposition Decision: 21:48 DIAGNOSIS: Dyspnea Qualifiers: Dyspnea type: unspecified Qualified Code(s): R06.00 - Dyspnea, unspecified Disposition: ADMITTED INPATIENT 09 Certified Medical Emergency: Emergent Condition: Stable - Critical Care Note This patient required my direct & personal management of CC.: No Attestation - Physician/ AYAAN Attestation Patient care was provided by Advanced Practice Provider:: No The physician spent face to face time with patient:: Yes Advanced Practice Provider documentation review:: Supervising physician onsite and consulted in the evaluation and care of this patient. The physician did have a face to face encounter with the patient. This chart was documented by the indicated scribe, (Demi Avitia, Bernice) and accurately reflects the services I performed and decisions made by me, Merlyn Johnson MD, as attested by the provider's signature.
--- NOTE | 2019-09-27 22:58 | EKG Report ---
Test Performed on : 09/27/2019 8:14:59 PM Test Reason : sob Blood Pressure : / mmHG Vent. Rate : 061 BPM Atrial Rate : 061 BPM P-R Int : 140 ms QRS Dur : 092 ms QT Int : 434 ms P-R-T Axes : 063 019 017 degrees QTc Int : 436 ms Normal sinus rhythm. Normal ECG When compared with ECG of 26-SEP-2019 07:02, No significant change was found Unconfirmed Result
[2019-09-27] MEDS ORDERED: VANCOMYCIN IV PER PHARMACY MISC SCH (23:14)
[2019-09-27] MEDS ORDERED: NORCO-7.5 PO PRN (23:14)
[2019-09-27] MEDS ORDERED: ZOFRAN IV PRN (23:14)
[2019-09-27] MEDS: ZOSYN 3.375 GM in NS 50 ML IV SCH (23:49)
[2019-09-27] MEDS: LIBRIUM PO SCH (23:49)
--- NOTE | 2019-09-27 23:54 | HISTORY AND PHYSICAL ---
PRIMARY CARE PROVIDER: DE. CHIEF COMPLAINT: Same abdominal pain. HISTORY OF PRESENT ILLNESS: Mr. Brewer is a 64-year-old gentleman who just left AMA today. He has been treated for a splenic abscess of unknown etiology and was set to undergo a ROSALINDA on Sunday with Cardiology. He states today he felt like a caged animal and just had to leave. He returned secondary to the same abdominal pain with no further complaints. PAST MEDICAL HISTORY: Coronary artery disease, COPD, hypertension, peripheral vascular disease, PTSD while in , anxiety, history of hostile behavior, schizophrenia with noncompliance with medications, homelessness, walks between [place] and [place]. PAST SURGICAL HISTORY: Bilateral femoral bypass, hernia surgery. SOCIAL HISTORY: Two pack per day smoker. Drinks about a half a pint of alcohol a day. Uses marijuana. ALLERGIES: No known drug allergies. MEDICATIONS: Home medications are being compiled. We will reinitiate him on his previous medications. REVIEW OF SYSTEMS: Completely negative except for those mentioned in HPI. PHYSICAL EXAMINATION: VITAL SIGNS: Temperature is 97.6 degrees, heart rate 60 respirations 16, blood pressure 111/82, O2 saturation is 100% on room air. GENERAL: Mr. Brewer is a 64-year-old gentleman who is sitting on the stretcher watching TV, in no acute distress. HEENT: Atraumatic, normocephalic. PERRL. NECK: Supple. Trachea midline. CARDIOVASCULAR: S1, S2 appreciated. No murmurs, gallops, or rubs noted. No lower extremity edema. PULMONARY: Bilateral breath sounds clear. GASTROINTESTINAL: Soft, nontender, nondistended. Positive bowel sounds 4 quadrants. NEUROLOGIC: He is awake, alert, oriented. No focal deficits. SKIN: Warm and dry. LABORATORY DATA: White count 5, hemoglobin and hematocrit 12 and 39, platelet count is 185,000. Chemistry: Sodium 145, potassium 4, BUN 13, creatinine 1.1. Blood glucose was 46. ProBNP was 584, troponin was 13. Chest x-ray, negative exam. ASSESSMENT AND PLAN: 1. Alcohol dependence. Continue Librium taper. 2. Splenic abscess. Continue with IV antibiotics with vancomycin and Zosyn. Scheduled undergo transesophageal echocardiogram on Sunday. We put that procedure in as well as reconsulted Dr. Bill and Dr. Lyons. 3. Constipation. Continue laxatives. 4. Coronary artery disease with history of PA. No complaints of chest pain. Continue current medications. 5. Severe peripheral vascular disease, aware. 6. Gastrointestinal prophylaxis. Continue Prilosec. 7. Deep venous thrombosis prophylaxis. Continue heparin. 8. Medical noncompliance. The patient left against medical advice earlier in the day. He reports he is willing to stay now. He felt like a caged animal. 9. Further recommendation to follow physician evaluation, laboratory and diagnostic data. Dictated by YAIMA Clifford for Darrian Maya MD cc: Darrian Maya MD
[2019-09-28] MEDS ORDERED: VANCOMYCIN 1,500 MG in NS 500 ML IV SCH (01:00)
[2019-09-28] MEDS ORDERED: VANCOMYCIN 2,400 MG in NS 500 ML IV ONE (01:00)
[2019-09-28] MEDS ORDERED: VANCOMYCIN 1,500 MG in NS 250 ML IV SCH (03:00)
[2019-09-28] MEDS: ZOSYN 3.375 GM in NS 50 ML IV SCH ×2 (05:59→11:18)
[2019-09-28] MEDS: LIBRIUM PO SCH ×2 (05:59→11:15)
--- NOTE | 2019-09-28 06:18 | EKG Report ---
Test Performed on : 09/28/2019 05:54:19 AM Test Reason : chest pain Blood Pressure : / mmHG Vent. Rate : 060 BPM Atrial Rate : 060 BPM P-R Int : 138 ms QRS Dur : 094 ms QT Int : 458 ms P-R-T Axes : 059 024 041 degrees QTc Int : 458 ms Normal sinus rhythm. Possible Inferior infarct , age undetermined Abnormal ECG When compared with ECG of 27-SEP-2019 20:14, (Unconfirmed) No significant change was found Confirmed by Heather MUIR, Lamonte Pugh ([id number]) on 09/29/2019 9:25:22 AM
[2019-09-28] MEDS ORDERED: PRILOSEC PO SCH (07:00)
[2019-09-28 07:23] LABS: BASO# 0.05 X1000 (0.0-0.2); BASO% 0.8 % (0.0-0.8); EOS# 0.27 X1000 (0.0-0.7); EOS% 4.6 % (0.0-10.0); HEMATOCRIT 39.2 % (42.0-52.0); HEMOGLOBIN 12.6 g/dL (14.0-18.0); LYMPH# 1.45 X1000 (1.2-3.4); LYMPH% 24.6 % (20.5-51.1); MCH 31.3 PG (27-31); MCHC 32.1 g/dL (33-37); MCV 97.3 FL (81-99); MONO# 0.83 X1000 (0.11-0.59); MONO% 14.1 % (1.7-9.3); MPV 10.9 FL (7.4-10.4); NEUT% 55.9 % (42.2-75.2); PLT 167 X1000 (130-400); RBC 4.03 XMIL (4.7-6.1); RDW 13.2 % (11.5-14.5)
[2019-09-28 07:51] LABS: AGAP 13; ALB/GLOB RATIO 1.5; ALBUMIN 3.6 g/dL (3.5-5.0); ALKALINE PHOSPHATASE 69 U/L (32-122); BUN 14 mg/dL (8-22); CHLORIDE 106 mmol/L (98-107); COSMO 283; ESTIMATED GFR > 60; GLUCOSE 94 mg/dL (70-104); GOT 20 U/L (10-34); GPT 21 U/L (10-44); MAGNESIUM 1.8 mg/dL (1.5-2.7); POTASSIUM 3.8 mmol/L (3.5-5.1); SODIUM 142 mmol/L (136-145); TCO2 23 mmol/L (25-35); TOTAL BILIRUBIN 0.25 mg/dL (0.20-1.00)
[2019-09-28] MEDS ORDERED: ASPIRIN PO SCH (09:00)
[2019-09-28] MEDS ORDERED: HEPARIN SUBQ SCH (09:00)
[2019-09-28] MEDS ORDERED: COLACE PO SCH (09:00)
--- NOTE | 2019-09-28 09:30 | GENERAL SURGERY PROGRESS NOTE ---
DATE: 09/28/2019 SUBJECTIVE: The patient briefly left AGAINST MEDICAL ADVICE yesterday, then came back for recurrent abdominal pain. This morning, he feels some soreness in his upper abdomen, even in the right upper quadrant, but none in the left upper quadrant. He has had no vomiting. OBJECTIVE: Vital Signs: He is afebrile. Vital signs are stable. General: He is awake and alert, no acute distress. GI: Soft. Mild tenderness in the epigastrium and right upper quadrant, but interestingly not in the left upper quadrant. No mass appreciated. LABORATORY DATA: White blood cell count normal, hemoglobin 12.6, hematocrit 39. Electrolytes and LFTs were reviewed and unremarkable. ASSESSMENT AND PLAN: A 64-year-old male with presumed splenic abscess. He does have abdominal pain. Continue antibiotics and observation, and cardiovascular evaluation with echocardiogram tomorrow. cc: Alfonso Lyons MD
[2019-09-28 13:41] VITALS: BP 102/74
--- NOTE | 2019-09-28 14:11 | PROGRESS NOTE ---
DATE: 09/28/2019 SUBJECTIVE: The patient is resting comfortably. He complains of shortness of breath and abdominal pain. OBJECTIVE: Vital Signs: Temperature 97.8 degrees, blood pressure 102/74, heart rate 58, respirations 20, O2 saturation is 99% on room air. General: This is a chronically ill-appearing, elderly male, standing near the bed, in no acute distress. Heart: S1, S2 normal. Regular rate and rhythm. Lungs: Equal air entry bilaterally. Abdomen: Positive bowel sounds. Soft, nontender, nondistended. Extremities: No edema, no cyanosis. Neurologic: The patient is alert and oriented x3. Labs: Reviewed. ASSESSMENT AND PLAN: 1. Splenic abscesses. Continue with intravenous antibiotics. The blood cultures remain negative. The patient is scheduled to undergo a transesophageal echocardiogram on Sunday. 2. Alcohol dependence. Continue on the Librium taper. 3. Coronary artery disease with a history of myocardial infarction. Aware. 4. Severe peripheral vascular disease. Aware. 5. Constipation. Continue with scheduled laxative therapy. 6. Deep vein thrombosis prophylaxis. Continue on heparin. cc: Tara Donato MD
[2019-09-28] MEDS ORDERED: LIPITOR PO SCH (21:00)
--- NOTE | 2019-09-29 20:29 | DISCHARGE SUMMARY ---
ADMISSION DATE: 09/27/2019 DISCHARGE DATE: 09/28/2019 FINAL DISCHARGE DIAGNOSES: 1. Splenic abscesses. 2. Alcohol dependence. 3. Coronary artery disease with a history of myocardial infarction. 4. Severe peripheral vascular disease. 5. Constipation. 6. Tobacco dependence. HOSPITAL COURSE: Mr. Brewer is a 64-year-old male with a history of alcohol and tobacco dependence who presented to the ER after leaving AMA complaining of shortness of breath and abdominal pain. The patient was admitted and restarted on antibiotic therapy and he was placed back on the schedule to undergo a ROSALINDA on 09/29/2019. Within a few hours of being in the hospital the patient elected to leave the hospital again against medical advice. The patient was advised that leaving the hospital before his treatment is complete could resulted in severe disability and even . The patient stated that he was willing to take the risk and left the hospital against medical advice. cc: Tara Donato MD
== END 2019-09-28 14:31 | disposition left against medical advice (07) ==
LOC: ED 19:57 → SUATTDRO 22:58 → 3N 22:58 → INTOOBSV 22:58
PROVIDERS: ATTEND Internal Medicine